=== PATIENT | female | born 1950 | race Caucasian/White ===

== ENCOUNTER 2017-07-21 20:58 | Emergency (ER) | payer MEDICARE, BC, OTHER ==
[2017-07-21] MEDS ORDERED: TYLENOL 325 MG PO ONE (21:20)
[2017-07-21] MEDS ORDERED: ATARAX 25 MG PO ONE (21:21)
[2017-07-21] MEDS ORDERED: ATARAX 25 MG ONE (21:28)
[2017-07-21] MEDS ORDERED: TYLENOL 325 MG ONE (21:28)
--- NOTE | 2017-07-21 21:29 | ERPHSYRPT ---
- History of Present Illness Time Seen by Provider: 07/21/17 21:01 Source: patient Patient Subjective Stated Complaint: pt has had a dull headache all day and tonight she went to her sons and he checked her blood pressure and said for her to come to the hospital because her blood pressure is high no fever no vomiting -she has not taken her night meds -no weakness Triage Nursing Assessment: pt is awake and alert and able to answer questions Physician History: CC: headache Hx: 67 y/o patient on eliquis. She has hx of HTN. She has frequent headache, but a little worse today. She noted high blood pressure at home and kids checked her and sent her to ER. No N/T/W. No chest, abd, or back pain. She has chronic shoulder pains. No fever or chills. No blurred vision. No fall or injury. She has not taken headache meds today and is due to take her evening medications. Timing/Duration: today Severity: moderate Allergies/Adverse Reactions: amoxicillin trihydrate [From Augmentin] Allergy (Verified 07/14/16 19:45) clindamycin Allergy (Verified 07/14/16 19:45) niacin [Niacin] Allergy (Verified 07/14/16 19:45) potassium clavula *RETIRED-01/15/13 [From Augmentin] Allergy (Verified 07/14/16 19:45) NOT ALLERGIC Home Medications: Calcium Carbonate/Vitamin D3 [Os-Charles 500+D Caplet] 1 each PO BID 02/26/13 [ History] Captopril 12.5 mg PO BID 02/26/13 [History] Carvedilol 12.5 mg [Coreg 12.5 mg] 12.5 mg PO BID 02/26/13 [History] Metformin HCl 500 mg [Glucophage 500 MG] 500 mg PO BID 02/26/13 [History] Omeprazole 20 MG [Prilosec 20 mg] 20 mg PO DAILY 02/26/13 [History] Rosuvastatin Calcium [Crestor] 20 mg PO DAILY 02/27/13 [History] Sitagliptin Phosphate 50 MG [Januvia 50 MG] 100 mg PO DAILY 02/27/13 [ History] Apixaban [Eliquis] 5 mg PO BID 04/20/15 [History] Liraglutide [Victoza 3-Brian] 1.2 mg SQ DAILY 04/20/15 [History] Gabapentin Enacarbil [Horizant] 600 mg PO TID 12/15/15 [History] Hydrocodone Bit/Acetaminophen [Hydrocodon-Acetaminophen 5-325] 1 each PO Q4- 6HPRN PRN 12/15/15 [History] Ondansetron [Zofran Odt] 4 mg PO Q8HPRN PRN 12/15/15 [History] Ferrous Sulfate [Feosol] 07/14/16 [History] Furosemide 5 mg PO 07/14/16 [History] Hydralazine HCl 10 mg PO TID 07/14/16 [History] Hx Tetanus, Diphtheria Vaccination/Date Given: Yes Hx Influenza Vaccination/Date Given: No Hx Pneumococcal Vaccination/Date Given: Yes - Review of Systems Constitutional: No Fever, No Chills Eyes: No Vision Changes Ears, Nose, & Throat: No Symptoms Respiratory: No Cough, No Dyspnea Cardiac: No Chest Pain Abdominal/Gastrointestinal: No Abdominal Pain, No Nausea, No Vomiting, No Diarrhea Musculoskeletal: Neck Pain (with chronic shoulder pains), No Back Pain, No Fall , No Injury Skin: No Rash Neurological: Headache, No Focal Weakness, No Parasthesia All Other Systems: Reviewed and Negative - Past Medical History Pertinent Past Medical History: Yes Neurological History: Peripheral Neuropathy ENT History: Other Cardiac History: Arrhythmia, Hypertension Respiratory History: No Pertinent History Endocrine Medical History: Adrenal Insufficiency, Diabetes Type II Musculoskeletal History: Fractures, Osteoarthritis GI Medical History: No Pertinent History History: No Pertinent History Psycho-Social History: No Pertinent History Female Reproductive Disorders: No Pertinent History Other Medical History: R TKA - Past Surgical History Past Surgical History: Yes Neuro Surgical History: No Pertinent History Cardiac: No Pertinent History Respiratory: No Pertinent History Gastrointestinal: Appendectomy Genitourinary: No Pertinent History Musculoskeletal: Joint Replacement Female Surgical History: Hysterectomy, Tubal Ligation Other Surgical History: tonsillectomy,. RIGHT KNEE REPLACED - Social History Smoking Status: Current every day smoker How long have you smoked: 30 Exposure to second hand smoke: Yes Alcohol Use: None Drug Use: none Patient Lives Alone: No Significant Family History: no pertinent family hx - Female History Hx Last Menstrual Period: na Hx Now: No - Nursing Vital Signs Nursing Vital Signs: Initial Vital Signs Temperature 97.6 F 10/28/17 21:27 Pulse Rate 80 07/21/17 21:27 Respiratory Rate 18 07/21/17 21:27 Blood Pressure 173/97 07/21/17 21:27 O2 Sat by Pulse Oximetry 97 07/21/17 21:27 Pain Scale Pain Intensity 5 - Physical Exam General Appearance: alert, other (pleasant lady) Eye Exam: PERRL/EOMI Ears, Nose, Throat Exam: normal ENT inspection, moist mucous membranes Neck Exam: normal inspection, non-tender, supple Respiratory Exam: normal breath sounds Cardiovascular Exam: irregular Gastrointestinal/Abdomen Exam: soft, No tenderness, No distention Back Exam: normal inspection, normal range of motion Extremity Exam: other (brace on left leg, recent femur fx right) Neurologic Exam: alert, oriented x 3, cooperative, induction machine setter II-XII nml as tested, sensation nml, No motor deficits Skin Exam: warm, dry, No rash - Course Nursing assessment & vital signs reviewed: Yes EKG Interpreted by Me: RATE (68), A-fib (old), NORMAL INTERVALS (QTc 417), NORMAL QRS, NORMAL ST-T, Other (poor R wave progression) - CT Exams head CT Interpretation: Negative, Tele-radiologist Report Ordered Tests: Active Orders 24 hr Category Date Time Status HEAD WITHOUT CONTRAST [CT] Stat Exams 07/21/17 21:20 Taken Glucose,Critical Care Urgent Lab 07/21/17 21:47 Completed VENOUS BLOOD GAS Urgent Lab 07/21/17 21:20 Completed Medication Summary Discontinued Medications Generic Name Dose Route Start Last Admin Trade Name Marta PRN Reason Stop Dose Admin Acetaminophen 650 mg 07/21/17 21:20 07/21/17 21:31 Tylenol 325 Mg PO 07/21/17 21:21 650 mg STAT ONE Administration Acetaminophen Confirm 07/21/17 21:28 Tylenol 325 Mg Administered 07/21/17 21:29 Dose 650 mg .ROUTE .STK-MED ONE Hydroxyzine HCl 25 mg 07/21/17 21:21 07/21/17 21:31 Atarax 25 Mg PO 07/21/17 21:22 25 mg STAT ONE Administration Hydroxyzine HCl Confirm 07/21/17 21:28 Atarax 25 Mg Administered 07/21/17 21:29 Dose 25 mg .ROUTE .STK-MED ONE Lab/Rad Data: Laboratory Results 07/21/17 07/21/17 Range/Units 21:47 21:20 VBG pH 7.42 (7.32-7.42) VBG pCO2 at Pat Temp 42 (42-55) mm/Hg VBG pO2 at Pat Temp 46 H (25-40) mm/Hg VBG HCO3 27.2 (22-28) meq/L VBG O2 Sat (Shilpa) 89.6 L (95-100) VBG Base Excess 2.3 H (-2.0-2.0) VBG Hemoglobin 16.4 VBG Carboxyhemoglobin 8.7 H* (0.0-6.9) % T HGB POC Potassium 3.9 (3.5-5.1) Glucose 124 H (70-110) - Progress Progress Note: 07/21/17 22:31 BP still somewhat elevated but she has yet to take her normal evening BP meds at home. Sugar, VBG reassuring. She smokes. All electric household with no CO or gas exposure. Chronic afib. Headache better. Will release with family. She plans to follow up with Dr Rainey and Dragan next week. Counseled pt/family regarding: lab results, diagnosis, need for follow-up, rad results, smoking cessation - Departure Time of Disposition: 22:32 Departure Disposition: Home Clinical Impression: Headache, Hypertension Condition: Stable Critical Care Time: No Referrals: CAMERON RAINEY [Primary Care Provider] - Instructions: Headache, High Blood Pressure Additional Instructions: HEADACHE 1. After discharge from the emergency department, you should rest at home in a cool, dark, quiet place for 12-24 hours. 2. If any of the following signs or symptoms are noticed, you should be re- evaluated right away: A. Visual changes B. Stiff Neck C. Change in quality or location of pain D. Fever E. Recurrent vomiting 3. If pain medications were prescribed or given, they may cause drowsiness. No driving tonite and stay with family. Take your normal medications tonite. Return for problems or concerns. Follow up next week with Dr Sherri Rainey and Dr Archibald.
[2017-07-21 21:56] LABS: VBG BASE EXCESS 2.3 (-2.0-2.0); VBG HCO3- 27.2 meq/L (22-28); VBG HEMOGLOBIN 16.4; VBG O2 SATURATION 89.6 (95-100); VBG POTASSIUM 3.9 (3.5-5.1); VBG pH 7.42 (7.32-7.42)
[2017-07-21 21:57] LABS: VBG CARBOXYHEMOGLOBIN 8.7 % T HGB (0.0-6.9)
[2017-07-21 22:33] VITALS: BP 170/90; PULSE 68; O2SAT 98
--- NOTE | 2017-07-22 09:38 | XRAY ---
Indication: Headache. Patient on blood thinners. Hypertension. Multiple contiguous axial images obtained through the head without contrast. Comparison: None Ventriculosulcal pattern appears symmetric. Right caudate head remote lacunar infarct. No acute intracranial hemorrhage, abnormal extra-axial fluid collection, or mass effect. Fourth ventricle is midline without hydrocephalus. Alcaraz-white matter differentiation preserved. Bony calvarium intact. Visualized paranasal sinuses and mastoid air cells are clear. Impression: Remote right caudate head lacunar infarct. No acute intracranial abnormalities. Comment: Preliminary interpretation was made by [facility]. No discrepancy. CTDI 69.79
== END 2017-07-21 22:39 | disposition home or self-care (01) ==
LOC: ED 20:58
DX: R51 Headache (principal); I10 Essential (primary) hypertension; E11.9 Type 2 diabetes mellitus without complications; Z79.01 Long term (current) use of anticoagulants; Z79.899 Other long term (current) drug therapy; Z79.891 Long term (current) use of opiate analgesic
CPT/HCPCS: 70450; 82805; 82947; 99284; A9270-GY

== ENCOUNTER 2018-02-06 19:38 | Emergency (ER) | payer MEDICARE, BC, OTHER ==
--- NOTE | 2018-02-06 20:15 | ERPHSYRPT ---
- History of Present Illness Time Seen by Provider: 02/06/18 20:00 Source: patient Exam Limitations: no limitations Patient Subjective Stated Complaint: UTI. pt had 5 teeth pulled today and had been having burning and frequency for about 4 days Triage Nursing Assessment: pt is alert and oriented. pt came in via wheelchair. pt is not experiencing any abd. pain. pt has been experiencing burning and frequency. pt stated today that she had blood in her urine. Physician History: 67 y/o female with history of a fib, HTN and DM comes to the ER with complaints of dysuria, hematuria and polyuria for the last 3 days. Pt had a tooth pulled today and has been off eliquis today. Pt arrives in afib with a heart rate fluctuating between 90-115. Pt denies any fever, chills, chest pain, shortness of breath, palpitations, dizziness, abdominal pain, back pain, nausea or vomiting. Of note, patient was on terminal operator antibiotics 2 years ago for frequent UTIs Timing/Duration: day(s) Associated Symptoms: No nausea, No vomiting, No abdominal pain Allergies/Adverse Reactions: amoxicillin trihydrate [From Augmentin] Allergy (Verified 07/14/16 19:45) clindamycin Allergy (Verified 07/14/16 19:45) niacin [Niacin] Allergy (Verified 07/14/16 19:45) potassium clavula *RETIRED-01/15/13 [From Augmentin] Allergy (Verified 07/14/16 19:45) NOT ALLERGIC Home Medications: Calcium Carbonate/Vitamin D3 [Os-Charles 500+D Caplet] 1 each PO BID 02/26/13 [ History] Captopril 12.5 mg PO BID 02/26/13 [History] Carvedilol 12.5 mg [Coreg 12.5 mg] 12.5 mg PO BID 02/26/13 [History] Metformin HCl 500 mg [Glucophage 500 MG] 500 mg PO BID 02/26/13 [History] Omeprazole 20 MG [Prilosec 20 mg] 20 mg PO DAILY 02/26/13 [History] Rosuvastatin Calcium [Crestor] 20 mg PO DAILY 02/27/13 [History] Sitagliptin Phosphate 50 MG [Januvia 50 MG] 100 mg PO DAILY 02/27/13 [ History] Apixaban [Eliquis] 5 mg PO BID 04/20/15 [History] Liraglutide [Victoza 3-Brian] 1.2 mg SQ DAILY 04/20/15 [History] Gabapentin Enacarbil [Horizant] 600 mg PO TID 12/15/15 [History] Hydrocodone Bit/Acetaminophen [Hydrocodon-Acetaminophen 5-325] 1 each PO Q4- 6HPRN PRN 12/15/15 [History] Ondansetron [Zofran Odt] 4 mg PO Q8HPRN PRN 12/15/15 [History] Ferrous Sulfate [Feosol] 07/14/16 [History] Furosemide 5 mg PO 07/14/16 [History] Hydralazine HCl 10 mg PO TID 07/14/16 [History] Hx Tetanus, Diphtheria Vaccination/Date Given: Yes Hx Influenza Vaccination/Date Given: Yes Hx Pneumococcal Vaccination/Date Given: No Immunizations Up to Date: Yes - Review of Systems Constitutional: No Fever, No Chills Eyes: No Symptoms Ears, Nose, & Throat: No Symptoms Respiratory: No Cough, No Dyspnea Cardiac: No Chest Pain, No Edema, No Syncope Abdominal/Gastrointestinal: No Abdominal Pain, No Nausea, No Vomiting, No Diarrhea Genitourinary Symptoms: Dysuria, Frequency, Hematuria Musculoskeletal: No Back Pain, No Neck Pain Skin: No Rash Neurological: No Dizziness, No Focal Weakness, No Sensory Changes Psychological: No Symptoms Endocrine: No Symptoms All Other Systems: Reviewed and Negative - Past Medical History Pertinent Past Medical History: Yes Neurological History: Peripheral Neuropathy ENT History: Other Cardiac History: Arrhythmia, Hypertension Respiratory History: No Pertinent History Endocrine Medical History: Diabetes Type II Musculoskeletal History: Fractures, Osteoarthritis GI Medical History: No Pertinent History History: No Pertinent History Psycho-Social History: No Pertinent History Female Reproductive Disorders: No Pertinent History Other Medical History: R TKA - Past Surgical History Past Surgical History: Yes Neuro Surgical History: No Pertinent History Cardiac: No Pertinent History Respiratory: No Pertinent History Gastrointestinal: Appendectomy Genitourinary: No Pertinent History Musculoskeletal: Joint Replacement Female Surgical History: Hysterectomy, Tubal Ligation Other Surgical History: tonsillectomy,. RIGHT KNEE REPLACED, right femur ike - Social History Smoking Status: Current every day smoker How long have you smoked: 30 Exposure to second hand smoke: Yes Alcohol Use: None Drug Use: none Patient Lives Alone: No Significant Family History: no pertinent family hx - Female History Hx Now: No - Nursing Vital Signs Nursing Vital Signs: Initial Vital Signs Temperature 99.1 F 02/06/18 19:39 Pulse Rate 96 H 02/06/18 19:39 Respiratory Rate 16 02/06/18 19:39 Blood Pressure 119/77 02/06/18 19:39 O2 Sat by Pulse Oximetry 95 02/06/18 19:39 Pain Scale Pain Intensity 0 - Physical Exam General Appearance: no apparent distress, alert Eye Exam: PERRL/EOMI, eyes nml inspection Ears, Nose, Throat Exam: normal ENT inspection, TMs normal, pharynx normal, moist mucous membranes Neck Exam: normal inspection, non-tender, supple, full range of motion Respiratory Exam: normal breath sounds, lungs clear, No respiratory distress Cardiovascular Exam: normal peripheral pulses, tachycardia, irregular Gastrointestinal/Abdomen Exam: soft, normal bowel sounds, No tenderness, No mass Back Exam: normal inspection, normal range of motion, No CVA tenderness, No vertebral tenderness Extremity Exam: normal inspection, normal range of motion, pelvis stable Neurologic Exam: alert, oriented x 3, cooperative, normal mood/affect, nml cerebellar function, nml station & gait, sensation nml, No motor deficits Skin Exam: normal color, warm, dry, No rash Lymphatic Exam: No adenopathy SpO2: 95 Oxygen Delivery: Room Air - Course Nursing assessment & vital signs reviewed: Yes EKG Interpreted by Me: A-fib, Other (heart rate 110) Ordered Tests: Active Orders 24 hr Category Date Time Status Supply Tech STAT Care 02/06/18 20:09 Active Clean Catch Urine Specimen STAT Care 02/06/18 20:02 Active EKG-ER Only STAT Care 02/06/18 20:08 Active CBC W DIFF Stat Lab 02/06/18 20:30 Completed CMP Stat Lab 02/06/18 20:30 Completed CULTURE,URINE Stat Lab 02/06/18 20:15 Received PROTIME WITH INR Stat Lab 02/06/18 20:30 Completed PTT Stat Lab 02/06/18 20:30 Completed TROPONIN Q3H Lab 02/06/18 20:30 Completed TROPONIN Q3H Lab 02/06/18 23:15 Ordered TROPONIN Q3H Lab 02/07/18 02:15 Ordered TROPONIN Q3H Lab 02/07/18 05:15 Ordered TROPONIN Q3H Lab 02/07/18 08:15 Ordered UA W/ MICROSCOPIC Stat Lab 02/06/18 20:15 Completed Medication Summary Discontinued Medications Generic Name Dose Route Start Last Admin Trade Name Marta PRN Reason Stop Dose Admin Trimethoprim/Sulfamethoxazole 1 tab 02/06/18 21:33 Bactrim Ds Tablet PO 02/06/18 21:34 STAT STA Lab/Rad Data: Laboratory Result Diagrams 02/06/18 20:30 02/06/18 20:30 Laboratory Results 02/06/18 02/06/18 02/06/18 Range/Units 20:30 20:30 20:30 WBC (4.0-10.5) K/mm3 RBC (4.1-5.4) M/mm3 Hgb (12.0-16.0) gm/dl Hct (35-47) % MCV (78-100) fl MCH (26-32) pg MCHC (32-36) g/dl RDW (11.5-14.0) % Plt Count (150-450) K/mm3 MPV (6-9.5) fl Gran % (36.0-66.0) % Eos # (Auto) (0-0.5) Absolute Lymphs (auto) (1.0-4.6) Absolute Monos (auto) (0.0-1.3) Lymphocytes % (24.0-44.0) % Monocytes % (0.0-12.0) % Eosinophils % (0.00-5.0) % Basophils % (0.0-0.4) % Absolute Granulocytes (1.4-6.9) Basophils # (0-0.4) PT 14.5 H (9.95-12.35) SECONDS INR 1.24 (0.8-3.0) APTT 38.2 H (25.3-37.0) SECONDS Sodium 139 (137-145) mmol/L Potassium 4.0 (3.5-5.1) mmol/L Chloride 102 (98-107) mmol/L Carbon Dioxide 28 (22-30) mmol/L Anion Gap 12.5 (5-15) MEQ/L BUN 19 H (7-17) mg/dL Creatinine 1.45 H (0.52-1.04) mg/dL Estimated GFR 38.4 ML/MIN Glucose 106 (74-106) mg/dL Calcium 9.2 (8.4-10.2) mg/dL Total Bilirubin 1.50 H (0.2-1.3) mg/dL AST 45 H (14-36) U/L ALT 33 (0-35) U/L Alkaline Phosphatase 106 (38-126) U/L Troponin I < 0.012 (0.000-0.034) ng/mL Serum Total Protein 6.7 (6.3-8.2) g/dL Albumin 3.6 (3.5-5.0) g/dL Ur Collection Type Urine Color (YELLOW) Urine Appearance (CLEAR) Urine pH (5-6) Ur Specific Justice (1.005-1.025) Urine Protein (Negative) Urine Ketones (NEGATIVE) Urine Blood (0-5) De/ul Urine Nitrite (NEGATIVE) Urine Bilirubin (NEGATIVE) Urine Urobilinogen (0-1) mg/dL Ur Leukocyte Esterase (NEGATIVE) Urine Microscopic RBC (0-2) /HPF Urine Microscopic WBC (0-5) /HPF Ur Epithelial Cells (FEW) /HPF Urine Bacteria (NEGATIVE) /HPF Urine Culture Reflexed (NO) Urine Glucose (NEGATIVE) mg/dL Specimen Received 02/06/18 02/06/18 Range/Units 20:30 20:15 WBC 9.8 (4.0-10.5) K/mm3 RBC 4.99 (4.1-5.4) M/mm3 Hgb 16.2 H (12.0-16.0) gm/dl Hct 47.3 H (35-47) % MCV 94.8 (78-100) fl MCH 32.4 H (26-32) pg MCHC 34.2 (32-36) g/dl RDW 14.5 H (11.5-14.0) % Plt Count 134 L (150-450) K/mm3 MPV 12.3 H (6-9.5) fl Gran % 70.1 H (36.0-66.0) % Eos # (Auto) 0.06 (0-0.5) Absolute Lymphs (auto) 1.28 (1.0-4.6) Absolute Monos (auto) 1.56 H (0.0-1.3) Lymphocytes % 13.1 L (24.0-44.0) % Monocytes % 16.0 H (0.0-12.0) % Eosinophils % 0.6 (0.00-5.0) % Basophils % 0.2 (0.0-0.4) % Absolute Granulocytes 6.84 (1.4-6.9) Basophils # 0.02 (0-0.4) PT (9.95-12.35) SECONDS INR (0.8-3.0) APTT (25.3-37.0) SECONDS Sodium (137-145) mmol/L Potassium (3.5-5.1) mmol/L Chloride (98-107) mmol/L Carbon Dioxide (22-30) mmol/L Anion Gap (5-15) MEQ/L BUN (7-17) mg/dL Creatinine (0.52-1.04) mg/dL Estimated GFR ML/MIN Glucose (74-106) mg/dL Calcium (8.4-10.2) mg/dL Total Bilirubin (0.2-1.3) mg/dL AST (14-36) U/L ALT (0-35) U/L Alkaline Phosphatase (38-126) U/L Troponin I (0.000-0.034) ng/mL Serum Total Protein (6.3-8.2) g/dL Albumin (3.5-5.0) g/dL Ur Collection Type CLEAN CATCH Urine Color LAURE (YELLOW) Urine Appearance CLOUDY (CLEAR) Urine pH 6.0 (5-6) Ur Specific Justice 1.010 (1.005-1.025) Urine Protein 100 (Negative) Urine Ketones SMALL (NEGATIVE) Urine Blood 250 (0-5) De/ul Urine Nitrite NEGATIVE (NEGATIVE) Urine Bilirubin NEGATIVE (NEGATIVE) Urine Urobilinogen 1 (0-1) mg/dL Ur Leukocyte Esterase 2+ (NEGATIVE) Urine Microscopic RBC 5-10 (0-2) /HPF Urine Microscopic WBC 50-100 (0-5) /HPF Ur Epithelial Cells FEW (FEW) /HPF Urine Bacteria FEW (NEGATIVE) /HPF Urine Culture Reflexed YES (NO) Urine Glucose NEGATIVE (NEGATIVE) mg/dL Specimen Received 02/06/18 2030 - Progress Progress: improved Progress Note: 02/06/18 21:38 Pt has a heart in the high 90's and has no symptoms. The rest of the labs are unremarkable. The patient has a UTI and will be treated with macrobid for 10 days. - Departure Time of Disposition: 21:38 Departure Disposition: Home Clinical Impression: UTI (urinary tract infection) Qualifiers: Urinary tract infection type: acute cystitis Hematuria presence: with hematuria Qualified Code(s): N30.01 - Acute cystitis with hematuria Condition: Stable Critical Care Time: No Referrals: CAMERON RAINEY [Primary Care Provider] - Instructions: Urinary Tract Infection, Adult (DC) Additional Instructions: Follow up with your primary care doctor in the next few days. Finish the antibiotics until completion. Prescriptions: Nitrofurantoin Macro 100 mg [Macrobid 100MG Capsule] 100 mg PO BID #19 capsule
[2018-02-06 20:38] LABS: BASOPHIL % 0.2 % (0.0-0.4); Basophil (Absolute #) 0.02 (0-0.4); Eosinophil % 0.6 % (0.00-5.0); Eosinophil (Absolute #) 0.06 (0-0.5); Granulocyte Absolute (ANC) 6.84 (1.4-6.9); Granulocytes % 70.1 % (36.0-66.0); Hematocrit 47.3 % (35-47); Hemoglobin 16.2 gm/dl (12.0-16.0); Lymphocyte (Absolute #) 1.28 (1.0-4.6); Lymphocytes % 13.1 % (24.0-44.0); Mean Cell Volume 94.8 fl (78-100); Mean Corpuscular Hgb Concent. 34.2 g/dl (32-36); Mean Platelet Volume 12.3 fl (6-9.5); Monocyte (Absolute #) 1.56 (0.0-1.3); Platelet Count 134 K/mm3 (150-450); Red Blood Count 4.99 M/mm3 (4.1-5.4); Red Cell Distribution Width 14.5 % (11.5-14.0); White Blood Count 9.8 K/mm3 (4.0-10.5)
[2018-02-06 20:40] LABS: Mean Corpuscular Hemoglobin 32.4 pg (26-32)
[2018-02-06 20:48] LABS: INR 1.24 (0.8-3.0)
[2018-02-06 20:51] LABS: PTT 38.2 SECONDS (25.3-37.0)
[2018-02-06 20:52] LABS: ALBUMIN 3.6 g/dL (3.5-5.0); ANION GAP 12.5 MEQ/L (5-15); BILIRUBIN,TOTAL 1.5 mg/dL (0.2-1.3); Calcium 9.2 mg/dL (8.4-10.2); Creatinine 1 1.45 mg/dL (0.52-1.04); Total Protein 6.7 g/dL (6.3-8.2)
[2018-02-06 21:31] LABS: Appearance CLOUDY (CLEAR)
[2018-02-06 21:32] LABS: Bacteria FEW /HPF (NEGATIVE); Bilirubin NEGATIVE (NEGATIVE); Blood 250 Ery/ul (0-5); Epithelial Cells FEW /HPF (FEW); Glucose NEGATIVE (NEGATIVE); Ketones SMALL (NEGATIVE); Leukocyte Esterase 2+ (NEGATIVE); Nitrite NEGATIVE (NEGATIVE); Protein,Urine Dip 100 (Negative); Urobilinogen 1 mg/dL (0-1); WBC 50-100 /HPF (0-5)
[2018-02-06] MEDS ORDERED: BACTRIM DS TABLET PO STA (21:33)
[2018-02-06] MEDS ORDERED: Macrobid 100MG Capsule ONE (21:40)
[2018-02-06] MEDS: Macrobid 100MG Capsule PO ONE (21:42)
[2018-02-06 22:01] LABS: Slide Review 1 YES
[2018-02-06 22:13] VITALS: BP 110/69; PULSE 101; O2SAT 95
== END 2018-02-06 22:15 | disposition home or self-care (01) ==
LOC: ED 19:38
DX: N30.01 Acute cystitis with hematuria (principal); I48.91 Unspecified atrial fibrillation; I10 Essential (primary) hypertension; E11.9 Type 2 diabetes mellitus without complications; Z79.01 Long term (current) use of anticoagulants; Z79.899 Other long term (current) drug therapy; Z79.84 Long term (current) use of oral hypoglycemic drugs
CPT/HCPCS: 36000; 36415; 80053; 81000; 84484; 85025; 85610; 85730; 87086; 93005; 93041; 99284; A9270-GY

== ENCOUNTER 2023-10-12 14:31 | Emergency (ER) | payer MEDICARE, BC, OTHER ==
--- NOTE | 2023-10-12 15:18 | ERPHSYRPT ---
- History of Present Illness Time Seen by Provider: 10/12/23 15:17 Source: patient Exam Limitations: no limitations Physician History: This is an obese 73-year-old white female patient of nurse practitioner Zion who stood up 2 days prior to today's examination in the emergency department and felt and heard a "pop" on the dorsal aspect of her left foot. Since that time she has had intermittent, sharp shooting pains down distally to her toes. Patient rates her pain today as a 2 out of 10. Patient has a history of peripheral neuropathy, arrhythmias, morbid obesity, hyperlipidemia, hypertension, gastroesophageal flux disease on Eliquis. She is a daily smoker of cigarettes. Occurred: days ago (2) Severity of Pain-Max: mild Severity of Pain-Current: mild Lower Extremities Pain: foot: left (Dorsal aspect) Modifying Factors: Improves With: nothing Associated Symptoms: none Allergies/Adverse Reactions: amoxicillin trihydrate [From Augmentin] Allergy (Verified 10/12/23 15:14) clindamycin Allergy (Verified 10/12/23 15:14) niacin [Niacin] Allergy (Verified 10/12/23 15:14) potassium clavula *RETIRED-01/15/13 [From Augmentin] Allergy (Verified 10/12/23 15:14) NOT ALLERGIC Home Medications: Calcium Carbonate/Vitamin D3 [Os-Charles 500+D Caplet] 1 each PO BID 02/26/13 [History] Captopril 12.5 mg PO BID 02/26/13 [History] Carvedilol 12.5 mg [Coreg 12.5 mg] 12.5 mg PO BID 02/26/13 [History] Metformin HCl 500 mg [Glucophage 500 MG] 500 mg PO BID 02/26/13 [History] Omeprazole 20 MG [Prilosec 20 mg] 20 mg PO DAILY 02/26/13 [History] Rosuvastatin Calcium [Crestor] 20 mg PO DAILY 02/27/13 [History] Sitagliptin Phosphate 50 MG [Januvia 50 MG] 100 mg PO DAILY 02/27/13 [History] Apixaban [Eliquis] 5 mg PO BID 04/20/15 [History] Liraglutide [Victoza 3-Brian] 1.2 mg SQ DAILY 04/20/15 [History] Gabapentin Enacarbil [Horizant] 600 mg PO TID 12/15/15 [History] Ferrous Sulfate [Feosol] 07/14/16 [History] Furosemide 5 mg PO 07/14/16 [History] Hydralazine HCl 10 mg PO TID 07/14/16 [History] Hx Tetanus, Diphtheria Vaccination/Date Given: Yes Hx Influenza Vaccination/Date Given: Yes Hx Pneumococcal Vaccination/Date Given: No Travel Risk - International Travel Have you traveled outside of the country in past 3 weeks: No - Coronavirus Screening Are you exhibiting any of the following symptoms?: No Close contact with a COVID-19 positive Pt in past 14-21 Days: No - Review of Systems Constitutional: No Symptoms Eyes: No Symptoms Ears, Nose, & Throat: No Symptoms Respiratory: No Symptoms Cardiac: No Symptoms Abdominal/Gastrointestinal: No Symptoms Genitourinary Symptoms: No Symptoms Musculoskeletal: Injury (Dorsal aspect left foot) Skin: No Symptoms Neurological: No Symptoms Psychological: No Symptoms Endocrine: No Symptoms Hematologic/Lymphatic: No Symptoms - Past Medical History Pertinent Past Medical History: Yes Neurological History: Peripheral Neuropathy ENT History: Other Cardiac History: Arrhythmia, Hypertension Respiratory History: No Pertinent History Endocrine Medical History: Diabetes Type II Musculoskeletal History: Fractures, Osteoarthritis GI Medical History: No Pertinent History History: No Pertinent History Psycho-Social History: No Pertinent History Female Reproductive Disorders: No Pertinent History Other Medical History: R TKA - Past Surgical History Past Surgical History: Yes Neuro Surgical History: No Pertinent History Cardiac: No Pertinent History Respiratory: No Pertinent History Gastrointestinal: Appendectomy Genitourinary: No Pertinent History Musculoskeletal: Joint Replacement Female Surgical History: Hysterectomy, Tubal Ligation Other Surgical History: tonsillectomy,. RIGHT KNEE REPLACED, right femur ike - Social History Smoking Status: Current every day smoker How long have you smoked: 30 Exposure to second hand smoke: Yes Alcohol Use: None Drug Use: none Patient Lives Alone: No Significant Family History: no pertinent family hx - Nursing Vital Signs Nursing Vital Signs: Initial Vital Signs Temperature 97.7 F 10/12/23 15:10 Pulse Rate 53 L 10/12/23 15:10 Respiratory Rate 18 10/12/23 15:10 Blood Pressure 131/56 10/12/23 15:10 O2 Sat by Pulse Oximetry 98 10/12/23 15:10 Pain Scale Pain Intensity 2 - Physical Exam General Appearance: no apparent distress, alert, anxiety, obese Eyes, Ears, Nose, Throat Exam: normal ENT inspection, moist mucous membranes Neck Exam: normal inspection, non-tender, supple, full range of motion Cardiovascular/Respiratory Exam: chest non-tender, no respiratory distress Gastrointestinal/Abdominal Exam: non-tender Back Exam: normal inspection, normal range of motion, No CVA tenderness, No vertebral tenderness Hips Exam: bilateral: non-tender, normal inspection, normal range of motion, no evidence of injury Legs Exam: bilateral leg: non-tender, normal inspection, normal range of motion, no evidence of injury Knees Exam: bilateral knee: non-tender, normal inspection, normal range of motion, no evidence of injury Ankle Exam: bilateral ankle: non-tender, normal inspection, normal range of motion, no evidence of injury Foot Exam: right foot: non-tender, left foot: bone tenderness (Dorsal aspect left foot), soft tissue tenderness (Dorsal aspect left foot), bilateral foot: normal inspection, normal range of motion, no evidence of injury Neuro/Tendon Exam: normal sensation, normal motor functions, normal tendon functions, responds to pain, no evidence tendon injury Mental Status Exam: alert, oriented x 3, cooperative Skin Exam: normal color, warm, dry SpO2 Interpretation: normal O2 Delivery: Room Air - Course Nursing assessment & vital signs reviewed: Yes Ordered Tests: Active Orders 24 hr Category Date Time Status FOOT (MINIMUM 3 VIEWS) Stat Exams 10/12/23 15:15 Completed - Progress Progress: unchanged Progress Note: 10/12/23 16:25 This patient's medical issue is 1 of low complexity. Level complex in the workup performed is based on review of the patient's past medical history, review the patient's medication list, review the patient drug allergy list, history present illness and physical exam findings. Workup in this patient in cludes left foot x-ray. The left foot x-ray was interpreted by the radiologist and I reviewed the impression. Left foot x-ray shows degenerative changes. There is no acute fractures or dislocations. There is small heel spurs. There is faint calcification of the Achilles tendon. 10/12/23 16:25 The patient's pain intensity level is 2 out of 10. She does not require any narcotic medication. She will use Tylenol, ibuprofen if there are no contraindications, and ice bath/ice pack. Counseled pt/family regarding: diagnosis, need for follow-up, rad results Medical Desision Making - Independent Historian Additional History obtained from: Family - Diagnostic Testing Diagnostic test were ordered, analyzed, and reviewed by me: Yes Radiological Interpretation: Reviewed by me, Teleradiologist Report - Risk of complications Minimal Risk: Minimal risk of morbidity - Departure Departure Disposition: Home Clinical Impression: Left foot pain Condition: Stable Critical Care Time: No Referrals: GUCCI VALENTIN NP [Primary Care Provider] - Follow up/PCP as directed Additional Instructions: Drink plenty of fluids. Use Tylenol and ibuprofen (if there are no contraindications) for pain control. Ice pack or ice bath 3 times a day for the next 48 hours. Follow-up with Dr. Cheng (podiatry) or [facility] orthopedic clinic Sunday through Sunday 8 AM to 10 AM. This is a walk-in clinic and you do not need to have an appointment. Follow-up with 1 of these 2 facilities if the pain persist beyond 72 hours.
[2023-10-12 15:45] VITALS: TEMP 97.7
--- NOTE | 2023-10-12 15:47 | XRAY ---
Indication: Pain following injury. Comparison: None 3 nonweightbearing views left foot demonstrates osteopenia, mild midfoot degenerative changes, small heel spurs, and small cuboid accessory ossicle. Faint calcifications Achilles tendon sequela old injury/inflammation. No other bony, articular, or soft tissue abnormalities.
[2023-10-12 16:10] VITALS: BP 107/45; PULSE 52; RESP 16; O2SAT 97
== END 2023-10-12 17:15 | disposition home or self-care (01) ==
LOC: ED 14:31
DX: M79.672 Pain in left foot (principal); I10 Essential (primary) hypertension; E11.42 Type 2 diabetes mellitus with diabetic polyneuropathy; E78.5 Hyperlipidemia, unspecified; Z79.84 Long term (current) use of oral hypoglycemic drugs; Z79.01 Long term (current) use of anticoagulants; Z79.85 Long-term (current) use of injectable non-insulin antidiabetic drugs; Z79.899 Other long term (current) drug therapy; Z72.0 Tobacco use
CPT/HCPCS: 73630; 99282

== ENCOUNTER 2025-08-12 14:11 | Observation (INO) | payer MEDICARE, BC ==
--- NOTE | 2025-08-12 14:17 | ERPHSYRPT ---
- History of Present Illness Source: patient, family, EMS, old records Exam Limitations: no limitations Timing/Duration: today Severity: mild Modifying Factors: Improves With: nothing Associated Symptoms: loss of appetite (Chronically) Hx Tetanus, Diphtheria Vaccination/Date Given: Yes Hx Influenza Vaccination/Date Given: Yes Hx Pneumococcal Vaccination/Date Given: No <AVIVA SIERRA - Last Filed: 08/12/25 19:10> <MACIELMELLO - Last Filed: 08/12/25 22:12> - History of Present Illness Time Seen by Provider: 08/12/25 14:17 Physician History: This is a 75-year-old overweight white female patient who arrives by the associate software developer service because of low blood sugar in the 50s at home with associated slurred speech. Patient's primary care provider is nurse edi Donovan. Upon arrival to the emergency department, after the patient received an amp of D50, the patient is completely awake alert and oriented with a nonfocal neurologic exam. She states that she has no chest pain and she is not short of breath. She states that she was aware what was happening and was surprised that her blood sugar was 50. Typically it is lower. Patient states that her primary prescribing providers have been adjusting different medications. On arrival to the emergency department her blood sugar is now 70. Patient has a history of hypertension, chronic renal disease not on dialysis (Dr. Bartholomew). Patient has a history of hyperlipidemia, gastroesophageal reflux disease and is taking Eliquis. She did not have any head injury. (AVIVA SIERRA) Allergies/Adverse Reactions: amoxicillin trihydrate [From Augmentin] Allergy (Verified 10/12/23 15:14) clindamycin Allergy (Verified 10/12/23 15:14) niacin [Niacin] Allergy (Verified 10/12/23 15:14) potassium clavula *RETIRED-01/15/13 [From Augmentin] Allergy (Verified 10/12/23 15:14) NOT ALLERGIC Home Medications: Carvedilol 12.5 mg [Coreg 12.5 mg] 25 mg PO BID 02/26/13 [History] Omeprazole 20 MG [Prilosec 20 mg] 20 mg PO DAILY 02/26/13 [History] Rosuvastatin Calcium [Crestor] 20 mg PO DAILY 02/27/13 [History] Sitagliptin Phosphate 50 MG [Januvia 50 MG] 100 mg PO DAILY 02/27/13 [History] Apixaban [Eliquis] 5 mg PO BID 04/20/15 [History] Gabapentin Enacarbil [Horizant] 600 mg PO TID 12/15/15 [History] Hydralazine HCl 25 mg PO BID 07/14/16 [History] Brimonidine Tartrate/Pf [Lumify 0.025% Eye Drop] 1 each OP HS 08/12/25 [History] Calcium Polycarbophil 625 mg [Fibercon 625 mg] 625 mg PO BID 08/12/25 [History] Cyanocobalamin 1000 Mcg/ml [Cyanocobalamin B-12 1000 MCG/ML] 1 ml PO UD 08/12/25 [History] Glipizide 5 mg [Glucotrol 5 MG] 5 mg PO BID 08/12/25 [History] [address]-3/Dha/Epa/Fish Oil [Fish Oil 1,000 mg Softgel] 1 each PO DAILY 08/12/25 [History] Pregabalin [Lyrica 100Mg] 100 mg PO DAILY 08/12/25 [History] Pregabalin [Lyrica 100Mg] 200 mg PO HS 08/12/25 [History] Travel Risk - International Travel Have you traveled outside of the country in past 3 weeks: No - Emerging Infectious Disease Are you exhibiting symptoms associated with any current EIDs: No <AVIVA SIERRA - Last Filed: 08/12/25 19:10> - Review of Systems Constitutional: Weakness (Chronic) Eyes: No Symptoms Ears, Nose, & Throat: No Symptoms Respiratory: No Symptoms Cardiac: No Symptoms Abdominal/Gastrointestinal: No Symptoms Genitourinary Symptoms: No Symptoms Musculoskeletal: No Symptoms Skin: No Symptoms Neurological: No Symptoms Psychological: No Symptoms Endocrine: No Symptoms Hematologic/Lymphatic: No Symptoms Immunological/Allergic: No Symptoms All Other Systems: Reviewed and Negative <AVIVA SIERRA - Last Filed: 08/12/25 19:10> - Past Medical History Pertinent Past Medical History: Yes Neurological History: Peripheral Neuropathy ENT History: Other Cardiac History: Arrhythmia, Hypertension Respiratory History: No Pertinent History Endocrine Medical History: Diabetes Type II Musculoskeletal History: Fractures, Osteoarthritis GI Medical History: No Pertinent History History: No Pertinent History Psycho-Social History: No Pertinent History Female Reproductive Disorders: No Pertinent History Other Medical History: R TKA - Past Surgical History Past Surgical History: Yes Neuro Surgical History: No Pertinent History Cardiac: No Pertinent History Respiratory: No Pertinent History Gastrointestinal: Appendectomy Genitourinary: No Pertinent History Musculoskeletal: Joint Replacement Female Surgical History: Hysterectomy, Tubal Ligation Other Surgical History: tonsillectomy,. RIGHT KNEE REPLACED, right femur ike Significant Family History: no pertinent family hx - Social History Smoking Status: Current every day smoker How long have you smoked: 30 Exposure to second hand smoke: Yes Alcohol Use: None Drug Use: none Patient Lives Alone: No <AVIVA SIERRA - Last Filed: 08/12/25 19:10> - Physical Exam General Appearance: no apparent distress, alert, obese Eye Exam: PERRL/EOMI, eyes nml inspection Ears, Nose, Throat Exam: normal ENT inspection, moist mucous membranes Neck Exam: normal inspection, non-tender, supple, full range of motion Respiratory Exam: normal breath sounds, lungs clear, No chest tenderness, No respiratory distress Cardiovascular Exam: regular rate/rhythm, normal heart sounds, normal peripheral pulses Gastrointestinal/Abdomen Exam: soft, normal bowel sounds, No tenderness Pelvic Exam: not done Rectal Exam: not done Back Exam: normal inspection, normal range of motion, No CVA tenderness, No vertebral tenderness Extremity Exam: normal inspection, normal range of motion, pelvis stable Neurologic Exam: alert, oriented x 3, cooperative, hair boiler II-XII nml as tested, sensation nml Skin Exam: normal color, warm, dry Lymphatic Exam: No adenopathy SpO2 Interpretation: normal O2 Delivery: Room Air <AVIVA SIRERA - Last Filed: 08/12/25 19:10> - Nursing Vital Signs Nursing Vital Signs: Initial Vital Signs Temperature 95.7 F 08/12/25 14:12 Pulse Rate 88 08/12/25 14:12 Respiratory Rate 22 08/12/25 14:12 Blood Pressure 155/88 08/12/25 14:12 O2 Sat by Pulse Oximetry 98 08/12/25 14:12 Pain Scale Pain Intensity 0 - Course Nursing assessment & vital signs reviewed: Yes EKG Interpreted by Me: RATE (73 ventricular paced complexes), Other (QTc 488. No acute ischemia on today's twelve-lead EKG) <AVIVA SIERRA - Last Filed: 08/12/25 19:10> - CT Exams Head CT Interpretation: Tele-radiologist Report (CTA head shows no comps. Very minimal calcification to the left parasellar ICA. Remaining CTA head normal) Soft Tissue Neck CT Interpretation: Tele-radiologist Report (CTA neck shows mild left ICA and minimal right ICA calcifications without critical stenosis or obstruction. Osteopenia and C4-C7 degenerative disc disease. Remaining CTA neck negative) <SANTO ABRAMS - Last Filed: 08/12/25 22:12> Ordered Tests: Active Orders 24 hr Category Date Time Status Machine Deburrer STAT Care 08/12/25 14:54 Active EKG-ER Only STAT Care 08/12/25 14:53 Completed IV Insertion STAT Care 08/12/25 14:[address] ANGIOGRAPHY NECK [CT] Stat Exams 08/12/25 19:16 Taken CTA HEAD W AND/OR WO CONTRAST [CT] Stat Exams 08/12/25 19:16 Taken HEAD WITHOUT CONTRAST [CT] Stat Exams 08/12/25 14:54 Completed CBC W DIFF Stat Lab 08/12/25 15:20 Completed CMP Stat Lab 08/12/25 15:20 Completed CULTURE,URINE Stat Lab 08/12/25 18:46 Received Lactic Acid Stat Lab 08/12/25 15:25 Completed MAGNESIUM Stat Lab 08/12/25 15:20 Completed POCT GLUCOSE Stat Lab 08/12/25 16:34 Completed UA W/RFX UR CULTURE Stat Lab 08/12/25 18:46 Completed Transfer Order Routine Transfer 08/12/25 Ordered Medication Summary Generic Name Dose Route Start Last Admin Trade Name Freq PRN Reason Stop Dose Admin Aspirin 325 mg 08/12/25 22:11 Aspirin 325 Mg Tablet.Ec PO 08/12/25 22:12 ONCE STA Sodium Chloride 500 mls @ 100 mls/hr 08/12/25 17:00 08/12/25 22:00 Sodium Chloride 0.9% 500 Ml IV 09/11/25 16:59 Infused .Q5H CINDY Infusion Discontinued Medications Generic Name Dose Route Start Last Admin Trade Name Freq PRN Reason Stop Dose Admin Dextrose Confirm 08/12/25 14:46 Dextrose 50%-Water 50 Ml Abboject Administered 08/12/25 14:47 Dose 50 ml IV .STK-MED ONE Dextrose 50 ml 08/12/25 14:51 08/12/25 14:52 Dextrose 50%-Water 50 Ml Abboject IV 08/12/25 14:52 50 ml STAT ONE Administration Sodium Chloride Confirm 08/12/25 16:55 Sodium Chloride 0.9% 1000 Ml Administered 08/12/25 16:56 Dose 1,000 mls @ ud .ROUTE .STK-MED ONE Levofloxacin/Dextrose 500 mg in 100 mls @ 100 mls/hr 08/12/25 20:22 08/12/25 21:26 Levofloxacin 500mg/100ml D5w IV 08/12/25 21:21 Infused STAT STA Infusion Levofloxacin/Dextrose Confirm 08/12/25 20:25 Levofloxacin 500mg/100ml D5w Administered 08/12/25 20:26 Dose 500 mg in 100 mls @ ud IV .STK-MED ONE Lab/Rad Data: Laboratory Result Diagrams 08/12/25 15:20 08/12/25 15:20 Laboratory Results 08/12/25 08/12/25 08/12/25 Range/Units 18:46 16:34 15:25 WBC (3.98-10.04) x10^3/uL RBC (3.93-5.22) x10^6/uL Hgb (11.2-15.7) g/dL Hct (34.1-44.9) % MCV (79.4-94.8) fL MCH (25.6-32.2) pg MCHC (32.2-35.5) g/dL RDW (11.7-14.4) % Plt Count (182-369) x10^3/uL MPV (9.4-12.3) fL Gran % (34.0-71.1) % Immature Gran % (Auto) (0.001-0.429) % Nucleat RBC Rel Count (0.00-0.2) % Eos # (Auto) (0.04-0.36) x10^3/uL Immature Gran # (Auto) (0.001-0.031) x10^3u/L Absolute Lymphs (auto) (1.18-3.74) x10^3/uL Absolute Monos (auto) (0.24-0.86) x10^3/uL Absolute Nucleated RBC (0.00-0.012) x10^3u/L Lymphocytes % (19.3-51.7) % Monocytes % (4.7-12.5) % Eosinophils % (0.7-5.8) % Basophils % (0.1-1.2) % Absolute Granulocytes (1.56-6.13) x10^3/uL Basophils # (0.01-0.08) x10^3/uL Sodium (135-145) mmol/L Potassium (3.5-5.1) mmol/L Chloride (98-107) mmol/L Carbon Dioxide (22-30) mmol/L Anion Gap (5-15) MEQ/L BUN (7-17) mg/dL Creatinine (0.52-1.04) mg/dL Estimated GFR ML/MIN Glucose (74-106) mg/dL POC Glucometer 169 H (74 to 106) mg/dL Lactic Acid 1.5 (0.4-2.0) Calcium (8.4-10.2) mg/dL Magnesium (1.6-2.3) mg/dL Total Bilirubin (0.2-1.3) mg/dL AST (14-36) U/L ALT (0-35) U/L Alkaline Phosphatase (38-126) U/L Serum Total Protein (6.3-8.2) g/dL Albumin (3.5-5.0) g/dL Urine Color Yellow (Yellow) Urine Appearance Cloudy A (Clear) Urine pH 5.5 (4.6-8.0) Ur Specific [place] 1.015 (1.005-1.030) Urine Protein 30 (Negative) Urine Glucose (UA) Negative (Negative) mg/dL Urine Ketones Negative (Negative) Urine Blood Negative (Negative) Urine Nitrite Positive A (Negative) Urine Bilirubin Negative (Negative) Urine Urobilinogen 1.0 A (0.2) mg/dL Ur Leukocyte Esterase Negative (Negative) U Hyaline Cast (Auto) 3-5 A (0-2) /LPF Urine Microscopic RBC 0-2 (0-5) /HPF Urine Microscopic WBC 0-2 (0-5) /HPF Ur Epithelial Cells Few (None Seen) /HPF Urine Bacteria Many A (None Seen) /HPF Urine Culture Reflexed ORDERED SEPARATELY (NO) Slides for Path Review 08/12/25 08/12/25 Range/Units 15:20 15:20 WBC 5.0 (3.98-10.04) x10^3/uL RBC 5.21 (3.93-5.22) x10^6/uL Hgb 15.9 H (11.2-15.7) g/dL Hct 48.4 H (34.1-44.9) % MCV 92.9 (79.4-94.8) fL MCH 30.5 (25.6-32.2) pg MCHC 32.9 (32.2-35.5) g/dL RDW 14.6 H (11.7-14.4) % Plt Count 88 L (182-369) x10^3/uL MPV 12.9 H (9.4-12.3) fL Gran % 66.6 (34.0-71.1) % Immature Gran % (Auto) 0.2 (0.001-0.429) % Nucleat RBC Rel Count 0.0 (0.00-0.2) % Eos # (Auto) 0.08 (0.04-0.36) x10^3/uL Immature Gran # (Auto) 0.01 (0.001-0.031) x10^3u/L Absolute Lymphs (auto) 1.24 (1.18-3.74) x10^3/uL Absolute Monos (auto) 0.30 (0.24-0.86) x10^3/uL Absolute Nucleated RBC 0.00 (0.00-0.012) x10^3u/L Lymphocytes % 25.0 (19.3-51.7) % Monocytes % 6.0 (4.7-12.5) % Eosinophils % 1.6 (0.7-5.8) % Basophils % 0.6 (0.1-1.2) % Absolute Granulocytes 3.30 (1.56-6.13) x10^3/uL Basophils # 0.03 (0.01-0.08) x10^3/uL Sodium 139 (135-145) mmol/L Potassium 3.6 (3.5-5.1) mmol/L Chloride 104 (98-107) mmol/L Carbon Dioxide 22 (22-30) mmol/L Anion Gap 17.1 H (5-15) MEQ/L BUN 22 H (7-17) mg/dL Creatinine 1.18 H (0.52-1.04) mg/dL Estimated GFR 48.5 ML/MIN Glucose 97 (74-106) mg/dL POC Glucometer (74 to 106) mg/dL Lactic Acid (0.4-2.0) Calcium 9.7 (8.4-10.2) mg/dL Magnesium 2.2 (1.6-2.3) mg/dL Total Bilirubin 1.70 H (0.2-1.3) mg/dL AST 46 H (14-36) U/L ALT 20 (0-35) U/L Alkaline Phosphatase 51 (38-126) U/L Serum Total Protein 7.7 (6.3-8.2) g/dL Albumin 4.6 (3.5-5.0) g/dL Urine Color (Yellow) Urine Appearance (Clear) Urine pH (4.6-8.0) Ur Specific [place] (1.005-1.030) Urine Protein (Negative) Urine Glucose (UA) (Negative) mg/dL Urine Ketones (Negative) Urine Blood (Negative) Urine Nitrite (Negative) Urine Bilirubin (Negative) Urine Urobilinogen (0.2) mg/dL Ur Leukocyte Esterase (Negative) U Hyaline Cast (Auto) (0-2) /LPF Urine Microscopic RBC (0-5) /HPF Urine Microscopic WBC (0-5) /HPF Ur Epithelial Cells (None Seen) /HPF Urine Bacteria (None Seen) /HPF Urine Culture Reflexed (NO) Slides for Path Review YES - Progress Progress: improved, re-examined Counseled pt/family regarding: lab results, diagnosis, rad results <AVIVA SIERRA - Last Filed: 08/12/25 19:10> <SANTO ABRAMS - Last Filed: 08/12/25 22:12> - Progress Progress Note: 08/12/25 19:11 My medical decision making and the assignment of moderate to high complexity of this patient's medical issue today is based on review of the patient's past medical history, reviewed patient's medication list, reviewed patient drug allergy list, history present illness and physical findings on examination. The workup in this patient includes CT scan of the head without contrast, urinalysis, CBC, CMP, twelve-lead EKG, magnesium level. Differential diagnosis includes was not limited to acute intracranial abnormality, hypoglycemia, urinary tract infection, dehydration, arrhythmia, electrolyte abnormalities The urinalysis is still pending. The remainder of her lab work does not appear to be acute. The GFR is slightly low at 48. CT scan of the head without contrast was interpreted by the radiologist and I reviewed the impression. 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 Although the patient is clinically nonfocal, we will obtain teleneuro consultation as well as order a CT angio of the neck and CTA of the head. I am transferring care of this patient to Dr. Santo Abrams at shift change. He will follow-up with the pending studies and make final disposition. (AVIVA SIERRA) Spoke to neurologist who advises admission for MRI. He advises holding Eliquis and administering a full dose of aspirin 325. Spoke to neurologist at 9:44 PM 08/12/25 21:47 CTA head shows no comps. Very minimal calcification to the left parasellar ICA. Remaining CTA head normal CTA neck shows mild left ICA and minimal right ICA calcifications without critical stenosis or obstruction. Osteopenia and C4-C7 degenerative disc disease. Remaining CTA neck negative 08/12/25 21:51 Case discussed with hospitalist Dr. Finn delvalle admission to observation at 9:58 PM. Plan of care discussed with patient. She agrees to admission at [facility] for further evaluation and treatment. 08/12/25 22:12 (SANTO ABRAMS) Medical Desision Making - Independent Historian Additional History obtained from: Family, Lump Maker/EMT <AVIVA SIERRA - Last Filed: 08/12/25 19:10> - Departure Departure Disposition: Observation Critical Care Time: Yes Critical Care Time(excluding separately billable procedures): Critical 30-74 mins (45) <AVIVA SIERRA - Last Filed: 08/12/25 19:10> <SANTO ABRAMS - Last Filed: 08/12/25 22:12> - Departure Clinical Impression: Altered mental status, Hypoglycemia Condition: Stable Referrals: GUCCI DONOVAN NP [Primary Care Provider, [facility]] - Follow up/PCP as directed
[2025-08-12] MEDS ORDERED: D50W 50 ml Abboject IV ONE (14:46)
[2025-08-12] MEDS: D50W 50 ml Abboject IV ONE (14:52)
[2025-08-12 15:31] LABS: BASOPHIL % 0.6 % (0.1-1.2); Basophil (Absolute #) 0.03 x10^3/uL (0.01-0.08); Eosinophil (Absolute #) 0.08 x10^3/uL (0.04-0.36); Hematocrit 48.4 % (34.1-44.9); Hemoglobin 15.9 g/dL (11.2-15.7); IMMATURE GRAN # 0.01 x10^3u/L (0.001-0.031); IMMATURE GRAN % 0.2 % (0.001-0.429); Lymphocyte (Absolute #) 1.24 x10^3/uL (1.18-3.74); Mean Corpuscular Hemoglobin 30.5 pg (25.6-32.2); Mean Corpuscular Hgb Concent. 32.9 g/dL (32.2-35.5); Monocyte (Absolute #) 0.30 x10^3/uL (0.24-0.86); NUCLEATED RBC # 0.00 x10^3u/L (0.00-0.012); NUCLEATED RBC % 0.0 % (0.00-0.2); Platelet Count 88 x10^3/uL (182-369); Red Blood Count 5.21 x10^6/uL (3.93-5.22); White Blood Count 5.0 x10^3/uL (3.98-10.04)
[2025-08-12 15:43] LABS: Calcium 9.7 mg/dL (8.4-10.2); Carbon Dioxide 22.0 mmol/L (22-30); Creatinine 1 1.18 mg/dL (0.52-1.04); EST GLOMERULAR FILTRATION RATE 48.5 ML/MIN; Glucose 97.0 mg/dL (74-106); Potassium 3.6 mmol/L (3.5-5.1); SGOT/AST 46.0 U/L (14-36); SGPT/ALT 20.0 U/L (0-35); Total Protein 7.7 g/dL (6.3-8.2)
[2025-08-12 15:52] LABS: Slide Review 1 YES
--- NOTE | 2025-08-12 16:28 | XRAY ---
Indication: Slurred speech. Multiple contiguous axial images obtained through the head without contrast. Comparison: July 21, 2017 Again age-appropriate global atrophy with progressive mild bilateral periventricular degenerative microischemia bilaterally. Stable right caudate head remote lacunar infarct. New lacunar infarct left basal ganglia. No acute intracranial hemorrhage, abnormal extra-axial fluid collection, or mass effect. 4th ventricle is midline without hydrocephalus. Bony calvarium intact. Visualized paranasal sinuses and mastoid air cells are clear. Impression: Nonacute senile brain with stable remote right caudate head lacunar infarct and new lacunar infarct left basal ganglia..
[2025-08-12 20:06] LABS: Glucose, Urine Negative (Negative); Protein,Urine Dip 30 (Negative); RBC 0-2 /HPF (0-5); WBC 0-2 /HPF (0-5)
[2025-08-12] MEDS ORDERED: Levofloxacin 500MG/100ML D5W 500 MG/100 ML BAG IV ONE (20:25)
[2025-08-12] MEDS: Levofloxacin 500MG/100ML D5W 500 MG/100 ML BAG IV STA (20:26)
--- NOTE | 2025-08-12 21:52 | PCM.CONS ---
History of Present Illness - Reason for Consult Chief Complaint: Aphasia, right sided focal deficits Date of Consultation Date: 08/12/25 Reason for Consult: Stroke Requesting Provider: Dr. Abrams Consulting Provider: TONNY QUESADA MD History of Present Illness: [facility] Consultation Reason for Consultation: Stroke Chief complaint: Weakness, slurred speech, Unable to talk LKW: 0800 Time called: 2125 Patient seen: 2130 Spoke to ER: 2144 HPI: This is a 75-year-old female with past medical history of diabetes, hypertension, atrial fibrillation on Eliquis who presented to the hospital with symptoms characterized by right-sided weakness, numbness as well as inability to talk. She told me that symptoms started at around 8 PM. She woke up at around 6:30 AM. When EMS came in, she had a low blood glucose of 50s. She was given amp of D50. Patient got a CAT scan which showed old right lacunar stroke as well as relatively new hypodensity in the left basal ganglia. She is doing better now. Stroke scale is 0. She is not a candidate for thrombolytic because symptom onset is more than 4-1/2 hours. Angiogram studies are pending. Med Hx, Surgical Hx, Family Hx, Social hx reviewed Labs, Vitals, imaging personally reviewed. Review of Systems: 12-point review of systems is negative unless mentioned in HPI Physical Exam: (done with the help of RN) Constitutional: Gen: NAD, pleasant, well nourished HEENT: NC/AT YUE, Neurologic Exam: Higher Functions: AA&Ox3; Tracks; Regards Follows simple and complex commands Communicates fluently and appropriately Language : Comprehension is intact; no aphasia; no dysarthria; repetition is intact; naming is normal; CN II : Visual calix are full; CN III, IV, : EOMI; pursuit is smooth; no nystagmus CN V : Facial sensation is full and symmetric CN VII : Facial movement is full and symmetric CN VIII : hearing intact BL CN IX, X : unable to assess CN XI : SCM 5/5 BL CN XII : Tongue protrudes midline Sensory : intact to soft touch Motor : Strength 5/5 UE and LE BL Deep tendon reflexes : unable to assess Plantar response : unable to assess [id number] : normal BL, no dysmetria [id number] : normal BL, no dysmetria Abnormal Movements : none seen Gait and Station : Deferred due to medical condition NIH Stroke Scale 0 (0) 1a. Level of consciousness (LOC): 0=alert;1=arousable by minor stimulation;2=obtunded or needs strong stimulation to attend;3=unresponsive or reflex responses only (0) 1b. LOC Questions: 0=answers both;1=answers one;2=answers neither (0) 1c. LOC Commands: 0=performs both tasks;1=performs one task;2=performs neither task (0) 2. Best Gaze: 0=normal;1=partial gaze palsy;2=forced deviation or total gaze paresis (0) 3. Visual: 0=normal;1=partial hemianopia;2=complete hemianopia;3=blind (0) 4. Facial palsy: 0=normal;1=minor paresis;2=partial paralysis;3=complete paralysis FOR 5 AND 6 BELOW: 0=normal;1=drifts but maintains in air;2=unable to maintain in air;3=moves but unable to lift against gravity;4=no movement (0)0 (_)1 (_)2 (_)3 (_)4 (_)NA 5a. Motor arm-left (0)0 (_)1 (_)2 (_)3 (_)4 (_)NA 5b. Motor arm-right (0)0 (_)1 (_)2 (_)3 (_)4 (_)NA 6a. Motor leg-left (0)0 (_)1 (_)2 (_)3 (_)4 (_)NA 6ba. Motor leg-right (0) 7. Limb ataxia:0=absent;1=unilateral;2=bilateral; NA=unable to test (0) 8. Sensory: 0=normal;1=mild-moderate loss;2-severe or total loss (0) 9. Best language: 0=normal;1=mild-moderate aphasia, some deficits apparent but able to communicate;2=severe aphasia, fragmentary expression only, unable to communicate well;3=global aphasia, mute and no comprehension (0) 10. Dysarthria: 0=normal;1=mild-moderate, slurs some words;2=severe, speech mostly unintelligible; NA=unable to test (e.g.,intubation) (0) 11. Extinction/Inattention: 0=normal;1=visual,tactile,auditory or other extinction to bilateral simultaneous stimulation, but no severe neglect;2=answers neither Assessment: 75-year-old female presented to the hospital with a right-sided weakness/numbness as well as aphasia. 1. Right-sided weakness/numbness/aphasia: #2 hypoglycemia: Symptoms started today at around 8 AM this morning. Patient noted that she was feeling numb and weak on the right side. She also could not speak very well. When EMS came, her blood glucose was in 50s. She was given an amp of D50. CAT scan shows hypodensity in the left basal ganglia as well as old infarct in the right caudate head. The symptoms of right sided focal deficits along with aphasia could be from the left basal ganglia hypodensity (stroke) versus focal neurosymptoms in the setting of hypoglycemia Plan: Permissive HTN, treat if pressure is more than 220 /[address] CT angiogram head and neck MRI brain 2D echo w bubble ASA 325 mg now Hold Eliquis till we get more clarification on MRI regarding the stroke volume (if any) Atorvastatin 40 mg daily The above anti-platelet recommendation may change pending the stroke workup such as echo and MRI Stroke labs Stroke education Risk factor modification PT OT ST DVT prophylaxis-WOJCIECH/SCDs Communicated plan with Dr. Abrams Thank you for allowing us to participate in this patients care. Please call [facility] with questions, concerns, or change in patients neurological status. This consult was performed via secure telemedicine 2 way audio/visual platform, patient consent obtained. This note was partially generated using a Dictation system, and there may be some incorrect words, spellings, and punctuation that were not noted in checking the note before saving. For clarifications, please call [facility]. Medications & Allergies Home Medications: Home Medication List Carvedilol 12.5 mg [Coreg 12.5 mg] 25 mg PO BID 02/26/13 [History Confirmed 08/12/25] Omeprazole 20 MG [Prilosec 20 mg] 20 mg PO DAILY 02/26/13 [History Confirmed 08/12/25] Rosuvastatin Calcium [Crestor] 20 mg PO DAILY 02/27/13 [History Confirmed 08/12/25] Sitagliptin Phosphate 50 MG [Januvia 50 MG] 100 mg PO DAILY 02/27/13 [History Confirmed 08/12/25] Apixaban [Eliquis] 5 mg PO BID 04/20/15 [History Confirmed 08/12/25] Gabapentin Enacarbil [Horizant] 600 mg PO TID 12/15/15 [History Confirmed 08/12/25] Hydralazine HCl 25 mg PO BID 07/14/16 [History Confirmed 08/12/25] Brimonidine Tartrate/Pf [Lumify 0.025% Eye Drop] 1 each OP HS 08/12/25 [History Confirmed 08/12/25] Calcium Polycarbophil 625 mg [Fibercon 625 mg] 625 mg PO BID 08/12/25 [History Confirmed 08/12/25] Cyanocobalamin 1000 Mcg/ml [Cyanocobalamin B-12 1000 MCG/ML] 1 ml PO UD 08/12/25 [History Confirmed 08/12/25] Glipizide 5 mg [Glucotrol 5 MG] 5 mg PO BID 08/12/25 [History Confirmed 08/12/25] [place]-3/Dha/Epa/Fish Oil [Fish Oil 1,000 mg Softgel] 1 each PO DAILY 08/12/25 [History Confirmed 08/12/25] Pregabalin [Lyrica 100Mg] 100 mg PO DAILY 08/12/25 [History Confirmed 08/12/25] Pregabalin [Lyrica 100Mg] 200 mg PO HS 08/12/25 [History Confirmed 08/12/25] Allergies/Adverse Reactions: Allergies Allergy/AdvReac Type Severity Reaction Status Date / Time amoxicillin trihydrate Allergy Verified 10/12/23 15:14 [From Augmentin] clindamycin Allergy Verified 10/12/23 15:14 niacin [Niacin] Allergy Verified 10/12/23 15:14 potassium clavula Allergy Verified 10/12/23 15:14 *RETIRED-01/15/13 [From Augmentin] - Past Medical History Past Medical History: Yes Neurological History: Peripheral Neuropathy ENT History: Other Cardiac History: Arrhythmia, Hypertension Respiratory History: No Pertinent History Endocrine Medical History: Diabetes Type II Musculoskelatal History: Fractures, Osteoarthritis GI Medical History: No Pertinent History History: No Pertinent History Pyscho-Social History: No Pertinent History Reproductive Disorders: No Pertinent History Comment: R TKA - Past Surgical History Past Surgical History: Yes Neuro Surgical History: No Pertinent History Cardiac History: No Pertinent History Respiratory Surgery: No Pertinent History GI Surgical History: Appendectomy Genitourinary Surgical Hx: No Pertinent History Musculskeletal Surgical Hx: Joint Replacement Female Surgical History: Hysterectomy, Tubal Ligation Other Surgical History: tonsillectomy,. RIGHT KNEE REPLACED, right femur ike Significant Family History: no pertinent family hx - Social History Smoking Status: Current every day smoker How long have you smoked: 30 Exposure to second hand smoke: Yes Alcohol: Occasionally Drug Use: none - Social Determinants of Health Will the patient participate in the screening: Declined to provide - Physical Exam Vital Signs: Vital Signs - 24 hr Temp Pulse Resp BP BP Pulse Ox 08/12/25 21:15 67 9 L 108/48 96 08/12/25 21:00 68 19 100/53 97 08/12/25 20:45 68 17 105/53 97 08/12/25 20:30 76 15 106/50 97 08/12/25 20:16 67 8 L 120/59 97 08/12/25 20:15 89 18 95 08/12/25 19:45 84/53 08/12/25 19:30 67 10 L 95/49 95 08/12/25 19:15 69 11 L 88/53 93 L 08/12/25 19:00 75 9 L 99/49 96 08/12/25 18:45 77 13 92/45 95 08/12/25 18:32 75 16 94/52 98 08/12/25 18:30 68 10 L 97/53 96 08/12/25 18:15 73 12 104/50 98 08/12/25 18:00 66 7 L 117/55 97 08/12/25 17:49 67 12 105/40 97 08/12/25 17:32 86/36 98 08/12/25 17:30 69 8 L 102/45 98 08/12/25 17:00 77 16 100/51 98 08/12/25 16:31 72 8 L 94/50 97 08/12/25 16:30 73 12 84/51 98 08/12/25 16:22 68 22 115/41 98 08/12/25 16:20 74 7 L 99 08/12/25 16:10 79 9 L 98 08/12/25 16:02 108 H 25 H 08/12/25 15:52 108 H 24 103/51 98 08/12/25 15:51 67 12 98 08/12/25 15:50 69 10 L 98 08/12/25 15:42 78 11 L 91 L 08/12/25 15:30 65 14 08/12/25 15:00 73 19 141/72 99 08/12/25 14:30 68 20 148/76 98 08/12/25 14:29 74 13 98 08/12/25 14:12 95.7 F 88 22 155/88 98 Results - Labs Lab/Micro Results: Lab Results-Last 24 Hours 08/12/25 08/12/25 08/12/25 Range/Units 15:20 15:20 15:25 WBC 5.0 (3.98-10.04) x10^3/uL RBC 5.21 (3.93-5.22) x10^6/uL Hgb 15.9 H (11.2-15.7) g/dL Hct 48.4 H (34.1-44.9) % MCV 92.9 (79.4-94.8) fL MCH 30.5 (25.6-32.2) pg MCHC 32.9 (32.2-35.5) g/dL RDW 14.6 H (11.7-14.4) % Plt Count 88 L (182-369) x10^3/uL MPV 12.9 H (9.4-12.3) fL Gran % 66.6 (34.0-71.1) % Immature Gran % (Auto) 0.2 (0.001-0.429) % Nucleat RBC Rel Count 0.0 (0.00-0.2) % Eos # (Auto) 0.08 (0.04-0.36) x10^3/uL Immature Gran # (Auto) 0.01 (0.001-0.031) x10^3u/L Absolute Lymphs (auto) 1.24 (1.18-3.74) x10^3/uL Absolute Monos (auto) 0.30 (0.24-0.86) x10^3/uL Absolute Nucleated RBC 0.00 (0.00-0.012) x10^3u/L Lymphocytes % 25.0 (19.3-51.7) % Monocytes % 6.0 (4.7-12.5) % Eosinophils % 1.6 (0.7-5.8) % Basophils % 0.6 (0.1-1.2) % Absolute Granulocytes 3.30 (1.56-6.13) x10^3/uL Basophils # 0.03 (0.01-0.08) x10^3/uL Sodium 139 (135-145) mmol/L Potassium 3.6 (3.5-5.1) mmol/L Chloride 104 (98-107) mmol/L Carbon Dioxide 22 (22-30) mmol/L Anion Gap 17.1 H (5-15) MEQ/L BUN 22 H (7-17) mg/dL Creatinine 1.18 H (0.52-1.04) mg/dL Estimated GFR 48.5 ML/MIN Glucose 97 (74-106) mg/dL POC Glucometer (74 to 106) mg/dL Lactic Acid 1.5 (0.4-2.0) Calcium 9.7 (8.4-10.2) mg/dL Magnesium 2.2 (1.6-2.3) mg/dL Total Bilirubin 1.70 H (0.2-1.3) mg/dL AST 46 H (14-36) U/L ALT 20 (0-35) U/L Alkaline Phosphatase 51 (38-126) U/L Serum Total Protein 7.7 (6.3-8.2) g/dL Albumin 4.6 (3.5-5.0) g/dL Urine Color (Yellow) Urine Appearance (Clear) Urine pH (4.6-8.0) Ur Specific [place] (1.005-1.030) Urine Protein (Negative) Urine Glucose (UA) (Negative) mg/dL Urine Ketones (Negative) Urine Blood (Negative) Urine Nitrite (Negative) Urine Bilirubin (Negative) Urine Urobilinogen (0.2) mg/dL Ur Leukocyte Esterase (Negative) U Hyaline Cast (Auto) (0-2) /LPF Urine Microscopic RBC (0-5) /HPF Urine Microscopic WBC (0-5) /HPF Ur Epithelial Cells (None Seen) /HPF Urine Bacteria (None Seen) /HPF Urine Culture Reflexed (NO) Slides for Path Review YES 08/12/25 08/12/25 Range/Units 16:34 18:46 WBC (3.98-10.04) x10^3/uL RBC (3.93-5.22) x10^6/uL Hgb (11.2-15.7) g/dL Hct (34.1-44.9) % MCV (79.4-94.8) fL MCH (25.6-32.2) pg MCHC (32.2-35.5) g/dL RDW (11.7-14.4) % Plt Count (182-369) x10^3/uL MPV (9.4-12.3) fL Gran % (34.0-71.1) % Immature Gran % (Auto) (0.001-0.429) % Nucleat RBC Rel Count (0.00-0.2) % Eos # (Auto) (0.04-0.36) x10^3/uL Immature Gran # (Auto) (0.001-0.031) x10^3u/L Absolute Lymphs (auto) (1.18-3.74) x10^3/uL Absolute Monos (auto) (0.24-0.86) x10^3/uL Absolute Nucleated RBC (0.00-0.012) x10^3u/L Lymphocytes % (19.3-51.7) % Monocytes % (4.7-12.5) % Eosinophils % (0.7-5.8) % Basophils % (0.1-1.2) % Absolute Granulocytes (1.56-6.13) x10^3/uL Basophils # (0.01-0.08) x10^3/uL Sodium (135-145) mmol/L Potassium (3.5-5.1) mmol/L Chloride (98-107) mmol/L Carbon Dioxide (22-30) mmol/L Anion Gap (5-15) MEQ/L BUN (7-17) mg/dL Creatinine (0.52-1.04) mg/dL Estimated GFR ML/MIN Glucose (74-106) mg/dL POC Glucometer 169 H (74 to 106) mg/dL Lactic Acid (0.4-2.0) Calcium (8.4-10.2) mg/dL Magnesium (1.6-2.3) mg/dL Total Bilirubin (0.2-1.3) mg/dL AST (14-36) U/L ALT (0-35) U/L Alkaline Phosphatase (38-126) U/L Serum Total Protein (6.3-8.2) g/dL Albumin (3.5-5.0) g/dL Urine Color Yellow (Yellow) Urine Appearance Cloudy A (Clear) Urine pH 5.5 (4.6-8.0) Ur Specific [place] 1.015 (1.005-1.030) Urine Protein 30 (Negative) Urine Glucose (UA) Negative (Negative) mg/dL Urine Ketones Negative (Negative) Urine Blood Negative (Negative) Urine Nitrite Positive A (Negative) Urine Bilirubin Negative (Negative) Urine Urobilinogen 1.0 A (0.2) mg/dL Ur Leukocyte Esterase Negative (Negative) U Hyaline Cast (Auto) 3-5 A (0-2) /LPF Urine Microscopic RBC 0-2 (0-5) /HPF Urine Microscopic WBC 0-2 (0-5) /HPF Ur Epithelial Cells Few (None Seen) /HPF Urine Bacteria Many A (None Seen) /HPF Urine Culture Reflexed ORDERED SEPARATELY (NO) Slides for Path Review - Radiology Impressions Radiology Exams & Impressions: Radiology Procedures Category Date Time Status CT ANGIOGRAPHY NECK [CT] Stat Exams 08/12/25 19:16 Taken CTA HEAD W AND/OR WO CONTRAST [CT] Stat Exams 08/12/25 19:16 Taken HEAD WITHOUT CONTRAST [CT] Stat Exams 08/12/25 14:54 Completed
[2025-08-12] MEDS ORDERED: Zofran 4 MG/2 ML VIAL IV PRN (22:57)
[2025-08-12] MEDS ORDERED: HUMALOG SQ PRN (22:57)
[2025-08-12] MEDS ORDERED: Ecotrin 325 MG ONE (23:40)
[2025-08-12] MEDS: LIPITOR 40MG PO STA (23:53)
[2025-08-12] MEDS: Ecotrin 325 MG PO STA (23:53)
--- NOTE | 2025-08-13 00:20 | PCM.HP ---
History of Present Illness - Chief Complaint Chief Complaint: Aphasia, right sided focal deficits Date: 08/12/25 History of Present Illness: is a 75 year old female with a history of hyperlipidemia, gastroesophageal reflux disease, CKD, DM, and anticoagulation (on Eliquis) who presented to the ED because of low blood sugar in the 50s at home with associated slurred speech and right sided body numbness. Upon arrival to the emergency department, after the patient received an amp of D50, the patient was completely awake alert and oriented with a nonfocal neurologic exam. She denied chest pain and shortness of breath. She stated that she was aware what was happening and was surprised that her blood sugar was 50. Patient states that her primary prescribing providers have been adjusting different medications with a decrease in some of her diabetic medications as she has lost weight. CT scan showed a new stroke relative to prior imaging in 2017, but indeterminate if acute vs subacute vs chronic. In the ED, the patient was assessed by neurology with recommendations for MRI imaging, holding of Eliquis, and initiation of ASA. At the time of my assessment, the patient's granddaughter was at bedside. - Review of Systems Constitutional: No Symptoms Eyes: No Symptoms Ears, Nose, & Throat: No Symptoms Respiratory: No Symptoms Cardiac: No Symptoms Abdominal/Gastrointestinal: No Symptoms Genitourinary Symptoms: No Symptoms Musculoskeletal: No Symptoms Skin: No Symptoms Neurological: Parasthesia, Sensory Changes, Speech Changes, No Dizziness, No Focal Weakness, No Gait Changes, No Headache, No Irritability, No Lethargy, No Paralysis, No Seizure, No Tics, No Tremors, No Vertigo Endocrine: No Symptoms Hematologic/Lymphatic: No Symptoms Immunological/Allergic: No Symptoms All Other Systems: Reviewed and Negative Medications & Allergies Home Medications: Home Medication List Carvedilol 12.5 mg [Coreg 12.5 mg] 25 mg PO BID 02/26/13 [History Confirmed 08/12/25] Omeprazole 20 MG [Prilosec 20 mg] 20 mg PO DAILY 02/26/13 [History Confirmed 08/12/25] Rosuvastatin Calcium [Crestor] 20 mg PO DAILY 02/27/13 [History Confirmed 08/12/25] Sitagliptin Phosphate 50 MG [Januvia 50 MG] 100 mg PO DAILY 02/27/13 [History Confirmed 08/12/25] Apixaban [Eliquis] 5 mg PO BID 04/20/15 [History Confirmed 08/12/25] Gabapentin Enacarbil [Horizant] 600 mg PO TID 12/15/15 [History Confirmed 08/12/25] Hydralazine HCl 25 mg PO BID 07/14/16 [History Confirmed 08/12/25] Brimonidine Tartrate/Pf [Lumify 0.025% Eye Drop] 1 each OP HS 08/12/25 [History Confirmed 08/12/25] Calcium Polycarbophil 625 mg [Fibercon 625 mg] 625 mg PO BID 08/12/25 [History Confirmed 08/12/25] Cyanocobalamin 1000 Mcg/ml [Cyanocobalamin B-12 1000 MCG/ML] 1 ml PO UD 08/12/25 [History Confirmed 08/12/25] Glipizide 5 mg [Glucotrol 5 MG] 5 mg PO BID 08/12/25 [History Confirmed 08/12/25] [place]-3/Dha/Epa/Fish Oil [Fish Oil 1,000 mg Softgel] 1 each PO DAILY 08/12/25 [History Confirmed 08/12/25] Pregabalin [Lyrica 100Mg] 100 mg PO DAILY 08/12/25 [History Confirmed 08/12/25] Pregabalin [Lyrica 100Mg] 200 mg PO HS 08/12/25 [History Confirmed 08/12/25] Allergies/Adverse Reactions: Allergies Allergy/AdvReac Type Severity Reaction Status Date / Time amoxicillin trihydrate Allergy Verified 10/12/23 15:14 [From Augmentin] clindamycin Allergy Verified 10/12/23 15:14 niacin [Niacin] Allergy Verified 10/12/23 15:14 potassium clavula Allergy Verified 10/12/23 15:14 *RETIRED-01/15/13 [From Augmentin] - Past Medical History Past Medical History: Yes Neurological History: Peripheral Neuropathy ENT History: Other Cardiac History: Arrhythmia, Hypertension Respiratory History: No Pertinent History Endocrine Medical History: Diabetes Type II Musculoskelatal History: Fractures, Osteoarthritis GI Medical History: No Pertinent History History: No Pertinent History Pyscho-Social History: No Pertinent History Reproductive Disorders: No Pertinent History Comment: R TKA - Past Surgical History Past Surgical History: Yes Neuro Surgical History: No Pertinent History Cardiac History: No Pertinent History, Pacemaker Respiratory Surgery: No Pertinent History GI Surgical History: Appendectomy Genitourinary Surgical Hx: No Pertinent History Musculskeletal Surgical Hx: Joint Replacement Female Surgical History: Hysterectomy, Tubal Ligation Other Surgical History: tonsillectomy,. RIGHT KNEE REPLACED, right femur ike, Significant Family History: no pertinent family hx - Social History Smoking Status: Current every day smoker How long have you smoked: 30 Exposure to second hand smoke: Yes Alcohol: None, Occasionally Drug Use: none - Social Determinants of Health Will the patient participate in the screening: Declined to provide - Physical Exam Vital Signs: Vital Signs - 24 hr Temp Pulse Resp BP BP Pulse Ox 08/12/25 22:00 80 13 106/50 98 08/12/25 21:45 74 15 106/48 08/12/25 21:30 70 13 111/49 08/12/25 21:15 67 9 L 108/48 96 08/12/25 21:00 68 19 100/53 97 08/12/25 20:45 68 17 105/53 97 08/12/25 20:30 76 15 106/50 97 08/12/25 20:16 67 8 L 120/59 97 08/12/25 20:15 89 18 95 08/12/25 19:45 84/53 08/12/25 19:30 67 10 L 95/49 95 08/12/25 19:15 69 11 L 88/53 93 L 08/12/25 19:00 75 9 L 99/49 96 08/12/25 18:45 77 13 92/45 95 08/12/25 18:32 75 16 94/52 98 08/12/25 18:30 68 10 L 97/53 96 08/12/25 18:15 73 12 104/50 98 08/12/25 18:00 66 7 L 117/55 97 08/12/25 17:49 67 12 105/40 97 08/12/25 17:32 86/36 98 08/12/25 17:30 69 8 L 102/45 98 08/12/25 17:00 77 16 100/51 98 08/12/25 16:31 72 8 L 94/50 97 08/12/25 16:30 73 12 84/51 98 08/12/25 16:22 68 22 115/41 98 08/12/25 16:20 74 7 L 99 08/12/25 16:10 79 9 L 98 08/12/25 16:02 108 H 25 H 08/12/25 15:52 108 H 24 103/51 98 08/12/25 15:51 67 12 98 08/12/25 15:50 69 10 L 98 08/12/25 15:42 78 11 L 91 L 08/12/25 15:30 65 14 08/12/25 15:00 73 19 141/72 99 08/12/25 14:30 68 20 148/76 98 08/12/25 14:29 74 13 98 08/12/25 14:12 95.7 F 88 22 155/88 98 General Appearance: no apparent distress, alert Neurologic Exam: alert, oriented x 3, cooperative, dietitian consultant II-XII nml as tested, normal mood/affect, nml cerebellar function, sensation nml, No motor deficits, No sensory deficit, No disoriented, No confusion, No agitation Eye Exam: PERRL/EOMI, eyes nml inspection, No scleral icterus, No pale conjunctivae, No photophobia Ears, Nose, Throat Exam: normal ENT inspection Neck Exam: normal inspection, non-tender, supple, full range of motion, No meningismus Respiratory Exam: normal breath sounds, lungs clear, airway intact, No chest tenderness, No respiratory distress Cardiovascular Exam: regular rate/rhythm, normal heart sounds, No murmur, No friction rub, No gallop, No edema Gastrointestinal/Abdomen Exam: soft, normal bowel sounds, No distention, No mass, No guarding Back Exam: normal range of motion Extremity Exam: normal range of motion, No pedal edema, No swelling Skin Exam: normal color, No rash, No petechiae, No jaundice, No abrasion, No cyanosis Results - Labs Lab/Micro Results: Lab Results-Last 24 Hours 08/12/25 08/12/25 08/12/25 Range/Units 15:20 15:20 15:25 WBC 5.0 (3.98-10.04) x10^3/uL RBC 5.21 (3.93-5.22) x10^6/uL Hgb 15.9 H (11.2-15.7) g/dL Hct 48.4 H (34.1-44.9) % MCV 92.9 (79.4-94.8) fL MCH 30.5 (25.6-32.2) pg MCHC 32.9 (32.2-35.5) g/dL RDW 14.6 H (11.7-14.4) % Plt Count 88 L (182-369) x10^3/uL MPV 12.9 H (9.4-12.3) fL Gran % 66.6 (34.0-71.1) % Immature Gran % (Auto) 0.2 (0.001-0.429) % Nucleat RBC Rel Count 0.0 (0.00-0.2) % Eos # (Auto) 0.08 (0.04-0.36) x10^3/uL Immature Gran # (Auto) 0.01 (0.001-0.031) x10^3u/L Absolute Lymphs (auto) 1.24 (1.18-3.74) x10^3/uL Absolute Monos (auto) 0.30 (0.24-0.86) x10^3/uL Absolute Nucleated RBC 0.00 (0.00-0.012) x10^3u/L Lymphocytes % 25.0 (19.3-51.7) % Monocytes % 6.0 (4.7-12.5) % Eosinophils % 1.6 (0.7-5.8) % Basophils % 0.6 (0.1-1.2) % Absolute Granulocytes 3.30 (1.56-6.13) x10^3/uL Basophils # 0.03 (0.01-0.08) x10^3/uL Sodium 139 (135-145) mmol/L Potassium 3.6 (3.5-5.1) mmol/L Chloride 104 (98-107) mmol/L Carbon Dioxide 22 (22-30) mmol/L Anion Gap 17.1 H (5-15) MEQ/L BUN 22 H (7-17) mg/dL Creatinine 1.18 H (0.52-1.04) mg/dL Estimated GFR 48.5 ML/MIN Glucose 97 (74-106) mg/dL POC Glucometer (74 to 106) mg/dL Lactic Acid 1.5 (0.4-2.0) Calcium 9.7 (8.4-10.2) mg/dL Magnesium 2.2 (1.6-2.3) mg/dL Total Bilirubin 1.70 H (0.2-1.3) mg/dL AST 46 H (14-36) U/L ALT 20 (0-35) U/L Alkaline Phosphatase 51 (38-126) U/L Serum Total Protein 7.7 (6.3-8.2) g/dL Albumin 4.6 (3.5-5.0) g/dL Urine Color (Yellow) Urine Appearance (Clear) Urine pH (4.6-8.0) Ur Specific [place] (1.005-1.030) Urine Protein (Negative) Urine Glucose (UA) (Negative) mg/dL Urine Ketones (Negative) Urine Blood (Negative) Urine Nitrite (Negative) Urine Bilirubin (Negative) Urine Urobilinogen (0.2) mg/dL Ur Leukocyte Esterase (Negative) U Hyaline Cast (Auto) (0-2) /LPF Urine Microscopic RBC (0-5) /HPF Urine Microscopic WBC (0-5) /HPF Ur Epithelial Cells (None Seen) /HPF Urine Bacteria (None Seen) /HPF Urine Culture Reflexed (NO) Slides for Path Review YES 08/12/25 08/12/25 Range/Units 16:34 18:46 WBC (3.98-10.04) x10^3/uL RBC (3.93-5.22) x10^6/uL Hgb (11.2-15.7) g/dL Hct (34.1-44.9) % MCV (79.4-94.8) fL MCH (25.6-32.2) pg MCHC (32.2-35.5) g/dL RDW (11.7-14.4) % Plt Count (182-369) x10^3/uL MPV (9.4-12.3) fL Gran % (34.0-71.1) % Immature Gran % (Auto) (0.001-0.429) % Nucleat RBC Rel Count (0.00-0.2) % Eos # (Auto) (0.04-0.36) x10^3/uL Immature Gran # (Auto) (0.001-0.031) x10^3u/L Absolute Lymphs (auto) (1.18-3.74) x10^3/uL Absolute Monos (auto) (0.24-0.86) x10^3/uL Absolute Nucleated RBC (0.00-0.012) x10^3u/L Lymphocytes % (19.3-51.7) % Monocytes % (4.7-12.5) % Eosinophils % (0.7-5.8) % Basophils % (0.1-1.2) % Absolute Granulocytes (1.56-6.13) x10^3/uL Basophils # (0.01-0.08) x10^3/uL Sodium (135-145) mmol/L Potassium (3.5-5.1) mmol/L Chloride (98-107) mmol/L Carbon Dioxide (22-30) mmol/L Anion Gap (5-15) MEQ/L BUN (7-17) mg/dL Creatinine (0.52-1.04) mg/dL Estimated GFR ML/MIN Glucose (74-106) mg/dL POC Glucometer 169 H (74 to 106) mg/dL Lactic Acid (0.4-2.0) Calcium (8.4-10.2) mg/dL Magnesium (1.6-2.3) mg/dL Total Bilirubin (0.2-1.3) mg/dL AST (14-36) U/L ALT (0-35) U/L Alkaline Phosphatase (38-126) U/L Serum Total Protein (6.3-8.2) g/dL Albumin (3.5-5.0) g/dL Urine Color Yellow (Yellow) Urine Appearance Cloudy A (Clear) Urine pH 5.5 (4.6-8.0) Ur Specific [place] 1.015 (1.005-1.030) Urine Protein 30 (Negative) Urine Glucose (UA) Negative (Negative) mg/dL Urine Ketones Negative (Negative) Urine Blood Negative (Negative) Urine Nitrite Positive A (Negative) Urine Bilirubin Negative (Negative) Urine Urobilinogen 1.0 A (0.2) mg/dL Ur Leukocyte Esterase Negative (Negative) U Hyaline Cast (Auto) 3-5 A (0-2) /LPF Urine Microscopic RBC 0-2 (0-5) /HPF Urine Microscopic WBC 0-2 (0-5) /HPF Ur Epithelial Cells Few (None Seen) /HPF Urine Bacteria Many A (None Seen) /HPF Urine Culture Reflexed ORDERED SEPARATELY (NO) Slides for Path Review - Radiology Impressions Radiology Exams & Impressions: Radiology Procedures Category Date Time Status CT ANGIOGRAPHY NECK [CT] Stat Exams 08/12/25 19:16 Taken CTA HEAD W AND/OR WO CONTRAST [CT] Stat Exams 08/12/25 19:16 Taken ECHO W/2D AND DOPPLER [US] Routine Exams 08/12/25 22:59 Ordered HEAD WITHOUT CONTRAST [CT] Stat Exams 08/12/25 14:54 Completed MRI BRAIN W/O CONTRAST [MRI] Routine Exams 08/12/25 23:00 Ordered - Other Procedures and Tests Respiratory Therapy 08/12/25 22:57 EKG REPEAT IN AM Assessment/Plan (1) Stroke Current Visit: Yes Status: Acute Assessment & Plan: Per neurology recommendations, hold Eliquis and start ASA. Check ECHO, MRI brain. Start statin and check FLP and TSH. Monitor BP trend. Telemetry. AM EKG. PT/OT eval. Code(s): I63.9 - CEREBRAL INFARCTION, UNSPECIFIED (2) Slurred speech Current Visit: Yes Status: Acute Assessment & Plan: May be related to hypoglycemia. ST eval. Code(s): R47.81 - SLURRED SPEECH (3) Numbness Current Visit: Yes Status: Acute Assessment & Plan: Monitor with neuro checks. Code(s): R20.0 - ANESTHESIA OF SKIN (4) Hypoglycemia Current Visit: Yes Status: Acute Assessment & Plan: Hold Januvia and glipizide. Monitor sugar trend on ISS. Check HbA1c. Code(s): E16.2 - HYPOGLYCEMIA, UNSPECIFIED Telemedicine Encounter - Telemedicine Encounter Telemedicine Encounter: "The entirety of this encounter was performed via Telemedicine" This visit was performed using real-time audio and video connection between my location and thepatients locationwith the assistance of a surrogateat the patients location. Written or verbal consent was obtained from the patient/guardian to perform this visit [email or web address]. Any patient questions regarding the telemedicine interaction were answered. Please note that this admission required 49 minutes to complete.
[2025-08-13] MEDS ORDERED: Cardizem IV 50 MG/10 ML IV ONE (04:25)
[2025-08-13 05:03] LABS: BASOPHIL % 0.6 % (0.1-1.2); Basophil (Absolute #) 0.03 x10^3/uL (0.01-0.08); Eosinophil (Absolute #) 0.08 x10^3/uL (0.04-0.36); Hematocrit 40.2 % (34.1-44.9); Hemoglobin 13.3 g/dL (11.2-15.7); IMMATURE GRAN # 0.01 x10^3u/L (0.001-0.031); IMMATURE GRAN % 0.2 % (0.001-0.429); Lymphocyte (Absolute #) 1.43 x10^3/uL (1.18-3.74); Mean Corpuscular Hemoglobin 30.9 pg (25.6-32.2); Mean Corpuscular Hgb Concent. 33.1 g/dL (32.2-35.5); Monocyte (Absolute #) 0.47 x10^3/uL (0.24-0.86); NUCLEATED RBC # 0.00 x10^3u/L (0.00-0.012); NUCLEATED RBC % 0.0 % (0.00-0.2); Platelet Count 75 x10^3/uL (182-369); Red Blood Count 4.31 x10^6/uL (3.93-5.22); White Blood Count 4.9 x10^3/uL (3.98-10.04)
[2025-08-13 05:29] LABS: Calcium 8.9 mg/dL (8.4-10.2); Carbon Dioxide 25.0 mmol/L (22-30); Creatinine 1 1.21 mg/dL (0.52-1.04); EST GLOMERULAR FILTRATION RATE 47.0 ML/MIN; Glucose 88.0 mg/dL (74-106); Potassium 3.6 mmol/L (3.5-5.1); SGOT/AST 32.0 U/L (14-36); SGPT/ALT 14.0 U/L (0-35); Total Protein 5.7 g/dL (6.3-8.2)
[2025-08-13 05:54] LABS: Cholesterol 101.0 mg/dL (50-200); LDL, DIRECT 44.0 mg/dL (30-100); TRIGLYCERIDE 110.0 mg/dL (30-150)
[2025-08-13 06:29] LABS: Slide Review 1 YES
[2025-08-13] MEDS ORDERED: MEDICATION INTERVENTION MC SCH (07:45)
[2025-08-13] MEDS ORDERED: PHARMACY RENAL DOSING MC ONE (07:53)
[2025-08-13] MEDS: Cardizem IV 50 MG/10 ML IV ONE (07:57)
[2025-08-13] MEDS ORDERED: GlucaGen 1 MG IM PRN (08:05)
[2025-08-13] MEDS ORDERED: Glutose 15 GM/30 ml ORAL GEL PO PRN (08:05)
--- NOTE | 2025-08-13 08:45 | XRAY ---
Indication: Altered mental status. Conventional contrast-enhanced CTA neck performed using 100 cc Isovue 370 contrast. 2D sagittal and coronal reformatted images obtained. Additional 3D reformatted images obtained using separate workstation. Comparison: None Visualized aortic arch is minimally arteriosclerotic without aneurysm/dissection. Normal branching right brachiocephalic, left common carotid, and left subclavian arteries with mild scattered calcifications at their origins. Examination right carotid circulation demonstrates very minimal calcifications in distal common carotid artery/bulb. Minimal eccentric calcifications seen origin internal carotid artery without critical stenosis. Remaining internal carotid and external carotid arteries are normal in CTA appearance. Examination left carotid circulation also demonstrates very minimal scattered calcifications in common carotid artery. Widely patent carotid bulb. There is mild calcifications seen origin internal carotid artery producing approximately 30-40% stenosis. Minimal calcifications seen origin external carotid artery without critical stenosis. Vertebral arteries are bilaterally patent with the left slightly larger in caliber. Visualized soft tissues degraded by motion. Parotid and submandibular glands grossly bilaterally symmetric. Thyroid gland enhances homogeneously. No pathologic cervical/supraclavicular lymphadenopathy. Lung apices grossly clear with minimal bilateral dependent atelectasis. Osseous structures intact with osteopenia and moderate C4-C7 degenerative disc disease. Patient is edentulous. Impression: 1. Minimally arteriosclerotic aortic arch and great vessels. 2. Minimal right and minimal/mild left carotid arteriosclerotic disease as detailed. Negative for critical stenosis/obstruction. 3. Bilaterally patent vertebral arteries with dominant left vertebral artery. 4. Incidental osteopenia and C4-C7 degenerative disc disease.
--- NOTE | 2025-08-13 08:47 | XRAY ---
Indication: Altered mental status. Conventional contrast-enhanced CTA head performed using 100 cc Isovue 370 contrast. 2D sagittal and coronal reformatted images obtained. Additional 3D reformatted images obtained using separate workstation. Comparison: None Distal internal carotid artery arteries demonstrates minimal calcifications left parasellar segment without critical stenosis/obstruction. Remaining left and right internal carotid arteries are widely patent. Normal carotid terminus with normal branching A1 and M1 segments bilaterally. More distal anterior cerebral, middle cerebral, anterior communicating, and posterior communicating arteries are normal in CTA appearance. Posterior circulation demonstrates normal CTA appearance to the basilar, left/right posterior cerebral, left/right superior cerebellar, and left/right anterior inferior cerebellar arteries. Venous sinuses/drainage unremarkable. Brain parenchyma is negative for abnormal intra or extra-axial enhancement. Impression: Minimal calcifications left parasellar internal carotid artery without critical stenosis/obstruction. Remaining CTA head with contrast is normal.
[2025-08-13] MEDS: Protonix 40MG Tablet PO SCH (09:45)
[2025-08-13] MEDS: ECOTRIN 81 MG PO SCH (09:45)
[2025-08-13] MEDS: LYRICA 100MG PO SCH ×2 (09:45→21:52)
[2025-08-13] MEDS: FISH OIL 1,000 MG CAPSULE PO SCH (09:46)
[2025-08-13] MEDS: LIPITOR 40MG PO SCH (09:46)
[2025-08-13] MEDS: FIBERCON 625 MG PO SCH (09:47)
[2025-08-13] MEDS ORDERED: ENOXAPARIN SODIUM SQ SCH (10:00)
[2025-08-13] MEDS ORDERED: Apresoline 25 MG TABLET PO SCH (10:00)
[2025-08-13] MEDS ORDERED: ZOCOR 20MG PO SCH (10:00)
[2025-08-13] MEDS ORDERED: COREG 12.5 MG PO SCH (10:00)
[2025-08-13] MEDS: NEURONTIN PO SCH (10:03)
[2025-08-13] MEDS: Miralax Powder 17GM PACKET PO SCH (12:41)
--- NOTE | 2025-08-13 14:54 | PCM.NOTE ---
Date and Time: 08/13/25 1447 Subjective Assessment: Ms. Mcclure is a 75-year-old female with a history of hyperlipidemia, gastroesophageal reflux disease, chronic kidney disease, diabetes mellitus, and anticoagulation with Eliquis who presented to the ED on 08/12/25 with hypoglycemia in the 50s at home, associated with slurred speech and right-sided numbness. She received an amp of D50 in the ED and was immediately awake, alert, and oriented with a nonfocal neurologic exam. She denied chest pain or shortness of breath and reported being aware of her symptoms, though surprised by her low blood sugar. She noted recent adjustments to her diabetic medications due to weight loss. CT imaging revealed a new stroke compared to prior studies from 2017, though indeterminate for acuity. Neurology was consulted and recommended MRI imaging, holding Eliquis, and starting aspirin. On 08/13/25, the patient was sitting up in a chair with resolution of aphasia and right-sided deficits. PT, OT, and speech therapy evaluations were ordered. An echocardiogram was completed and results are pending. MRI of the brain could not be performed due to her pacemaker, and neurology was reconsulted for further recommendations. CT of the head demonstrated a new lacunar infarct. Aspirin 81 mg daily and Lipitor 40 mg daily was initiated per neurology. Her creatinine was stable at 1.21. Lovenox was held, and Eliquis remains on hold due to the stroke. Platelets were 75, consistent with chronically low counts on prior labs, though the patient was unaware of this history and has never seen hematology. She denied melena or hematochezia. She reported a 70-pound weight loss over the past 34 months, [address] CT of the chest, abdomen, and pelvis was ordered for further evaluation. She previously used Mounjaro, discontinued two months ago, and has not felt well since. Januvia and glipizide are currently held due to hypoglycemia at presentation. Blood glucose is monitored every four hours with hypoglycemia protocol in place. She was also found to have a UTI and started on renally dosed Levaquin. For constipation, MiraLAX was initiated per her preference. The patient denies depression but reports recent significant losses of a son and [id number]. At present, she denies further concerns. - Review of Systems Constitutional: Weight Loss (70 lbs), No Fever, No Chills Eyes: No Symptoms Ears, Nose, & Throat: No Symptoms Respiratory: No Cough, No Short Of Breath Cardiac: No Chest Pain, No Edema, No Syncope Abdominal/Gastrointestinal: Appetite Changes, No Abdominal Pain, No Nausea, No Vomiting, No Diarrhea Genitourinary Symptoms: No Dysuria Musculoskeletal: No Back Pain, No Neck Pain Skin: No Rash Neurological: No Dizziness, No Focal Weakness, No Sensory Changes Psychological: No Symptoms Endocrine: No Symptoms Hematologic/Lymphatic: No Symptoms Immunological/Allergic: No Symptoms Objective Exam General Appearance: no apparent distress, alert Neurologic Exam: alert, oriented x 3, cooperative, normal mood/affect, nml cerebellar function, sensation nml, No motor deficits Skin Exam: normal color, warm, dry Eye Exam: PERRL, EOMI, eyes nml inspection Ears, Nose, Throat Exam: normal ENT inspection, pharynx normal, moist mucous membranes Neck Exam: normal inspection, non-tender, supple, full range of motion Respiratory Exam: normal breath sounds, lungs clear, No respiratory distress Cardiovascular Exam: regular rate/rhythm, normal heart sounds Gastrointestinal/Abdomen Exam: soft, No tenderness, No mass Extremity Exam: normal inspection, normal range of motion Back Exam: normal inspection, normal range of motion, No CVA tenderness, No vertebral tenderness Pelvic Exam: deferred Rectal Exam: deferred Objective Data Vital Signs: Vital Signs - 24 hr Temp Pulse Resp BP BP Pulse Ox 08/13/25 12:00 96.7 F 61 16 116/57 97 08/13/25 07:32 96.7 F 67 16 99/56 97 08/13/25 04:00 96.6 F 63 16 93/55 97 08/12/25 22:34 98.3 F 80 18 89/50 95 08/12/25 22:00 80 13 106/50 98 08/12/25 21:45 74 15 106/48 08/12/25 21:30 70 13 111/49 08/12/25 21:15 67 9 L 108/48 96 08/12/25 21:00 68 19 100/53 97 08/12/25 20:45 68 17 105/53 97 08/12/25 20:30 76 15 106/50 97 08/12/25 20:16 67 8 L 120/59 97 08/12/25 20:15 89 18 95 08/12/25 19:45 84/53 08/12/25 19:30 67 10 L 95/49 95 08/12/25 19:15 69 11 L 88/53 93 L 08/12/25 19:00 75 9 L 99/49 96 08/12/25 18:45 77 13 92/45 95 08/12/25 18:32 75 16 94/52 98 08/12/25 18:30 68 10 L 97/53 96 08/12/25 18:15 73 12 104/50 98 08/12/25 18:00 66 7 L 117/55 97 08/12/25 17:49 67 12 105/40 97 08/12/25 17:32 86/36 98 08/12/25 17:30 69 8 L 102/45 98 08/12/25 17:00 77 16 100/51 98 08/12/25 16:31 72 8 L 94/50 97 08/12/25 16:30 73 12 84/51 98 08/12/25 16:22 68 22 115/41 98 08/12/25 16:20 74 7 L 99 08/12/25 16:10 79 9 L 98 08/12/25 16:02 108 H 25 H 08/12/25 15:52 108 H 24 103/51 98 08/12/25 15:51 67 12 98 08/12/25 15:50 69 10 L 98 08/12/25 15:42 78 11 L 91 L 08/12/25 15:30 65 14 08/12/25 15:00 73 19 141/72 99 Pain Assessment - Last Documented Pain Intensity 0 Intake and Output: Intake & Output 08/11/25 08/12/25 08/13/25 08/14/25 11:59 11:59 11:59 11:59 Intake Total 240 120 Output Total 600 Balance -360 120 Weight 71.6 kg Lab Results: Lab Results-Last 24 Hours 08/12/25 08/12/25 08/12/25 Range/Units 15:20 15:20 15:25 WBC 5.0 (3.98-10.04) x10^3/uL RBC 5.21 (3.93-5.22) x10^6/uL Hgb 15.9 H (11.2-15.7) g/dL Hct 48.4 H (34.1-44.9) % MCV 92.9 (79.4-94.8) fL MCH 30.5 (25.6-32.2) pg MCHC 32.9 (32.2-35.5) g/dL RDW 14.6 H (11.7-14.4) % Plt Count 88 L (182-369) x10^3/uL MPV 12.9 H (9.4-12.3) fL Gran % 66.6 (34.0-71.1) % Immature Gran % (Auto) 0.2 (0.001-0.429) % Nucleat RBC Rel Count 0.0 (0.00-0.2) % Eos # (Auto) 0.08 (0.04-0.36) x10^3/uL Immature Gran # (Auto) 0.01 (0.001-0.031) x10^3u/L Absolute Lymphs (auto) 1.24 (1.18-3.74) x10^3/uL Absolute Monos (auto) 0.30 (0.24-0.86) x10^3/uL Absolute Nucleated RBC 0.00 (0.00-0.012) x10^3u/L Lymphocytes % 25.0 (19.3-51.7) % Monocytes % 6.0 (4.7-12.5) % Eosinophils % 1.6 (0.7-5.8) % Basophils % 0.6 (0.1-1.2) % Absolute Granulocytes 3.30 (1.56-6.13) x10^3/uL Basophils # 0.03 (0.01-0.08) x10^3/uL Sodium 139 (135-145) mmol/L Potassium 3.6 (3.5-5.1) mmol/L Chloride 104 (98-107) mmol/L Carbon Dioxide 22 (22-30) mmol/L Anion Gap 17.1 H (5-15) MEQ/L BUN 22 H (7-17) mg/dL Creatinine 1.18 H (0.52-1.04) mg/dL Estimated GFR 48.5 ML/MIN Glucose 97 (74-106) mg/dL POC Glucometer (74 to 106) mg/dL Hemoglobin A1c (4.5-6.0) % Lactic Acid 1.5 (0.4-2.0) Calcium 9.7 (8.4-10.2) mg/dL Magnesium 2.2 (1.6-2.3) mg/dL Total Bilirubin 1.70 H (0.2-1.3) mg/dL AST 46 H (14-36) U/L ALT 20 (0-35) U/L Alkaline Phosphatase 51 (38-126) U/L Serum Total Protein 7.7 (6.3-8.2) g/dL Albumin 4.6 (3.5-5.0) g/dL Triglycerides (30-150) mg/dL Cholesterol (50-200) mg/dL LDL Cholesterol (30-100) mg/dL HDL Cholesterol (40-60) mg/dL Heart Disease Risk Ratio TSH 3rd Generation (0.470-4.680) mIU/L Urine Color (Yellow) Urine Appearance (Clear) Urine pH (4.6-8.0) Ur Specific [place] (1.005-1.030) Urine Protein (Negative) Urine Glucose (UA) (Negative) mg/dL Urine Ketones (Negative) Urine Blood (Negative) Urine Nitrite (Negative) Urine Bilirubin (Negative) Urine Urobilinogen (0.2) mg/dL Ur Leukocyte Esterase (Negative) U Hyaline Cast (Auto) (0-2) /LPF Urine Microscopic RBC (0-5) /HPF Urine Microscopic WBC (0-5) /HPF Ur Epithelial Cells (None Seen) /HPF Urine Bacteria (None Seen) /HPF Urine Culture Reflexed (NO) Slides for Path Review YES 08/12/25 08/12/25 08/13/25 Range/Units 16:34 18:46 04:20 WBC 4.9 (3.98-10.04) x10^3/uL RBC 4.31 (3.93-5.22) x10^6/uL Hgb 13.3 (11.2-15.7) g/dL Hct 40.2 (34.1-44.9) % MCV 93.3 (79.4-94.8) fL MCH 30.9 (25.6-32.2) pg MCHC 33.1 (32.2-35.5) g/dL RDW 14.7 H (11.7-14.4) % Plt Count 75 L (182-369) x10^3/uL MPV 13.4 H (9.4-12.3) fL Gran % 58.5 (34.0-71.1) % Immature Gran % (Auto) 0.2 (0.001-0.429) % Nucleat RBC Rel Count 0.0 (0.00-0.2) % Eos # (Auto) 0.08 (0.04-0.36) x10^3/uL Immature Gran # (Auto) 0.01 (0.001-0.031) x10^3u/L Absolute Lymphs (auto) 1.43 (1.18-3.74) x10^3/uL Absolute Monos (auto) 0.47 (0.24-0.86) x10^3/uL Absolute Nucleated RBC 0.00 (0.00-0.012) x10^3u/L Lymphocytes % 29.4 (19.3-51.7) % Monocytes % 9.7 (4.7-12.5) % Eosinophils % 1.6 (0.7-5.8) % Basophils % 0.6 (0.1-1.2) % Absolute Granulocytes 2.84 (1.56-6.13) x10^3/uL Basophils # 0.03 (0.01-0.08) x10^3/uL Sodium (135-145) mmol/L Potassium (3.5-5.1) mmol/L Chloride (98-107) mmol/L Carbon Dioxide (22-30) mmol/L Anion Gap (5-15) MEQ/L BUN (7-17) mg/dL Creatinine (0.52-1.04) mg/dL Estimated GFR ML/MIN Glucose (74-106) mg/dL POC Glucometer 169 H (74 to 106) mg/dL Hemoglobin A1c (4.5-6.0) % Lactic Acid (0.4-2.0) Calcium (8.4-10.2) mg/dL Magnesium (1.6-2.3) mg/dL Total Bilirubin (0.2-1.3) mg/dL AST (14-36) U/L ALT (0-35) U/L Alkaline Phosphatase (38-126) U/L Serum Total Protein (6.3-8.2) g/dL Albumin (3.5-5.0) g/dL Triglycerides (30-150) mg/dL Cholesterol (50-200) mg/dL LDL Cholesterol (30-100) mg/dL HDL Cholesterol (40-60) mg/dL Heart Disease Risk Ratio TSH 3rd Generation (0.470-4.680) mIU/L Urine Color Yellow (Yellow) Urine Appearance Cloudy A (Clear) Urine pH 5.5 (4.6-8.0) Ur Specific [place] 1.015 (1.005-1.030) Urine Protein 30 (Negative) Urine Glucose (UA) Negative (Negative) mg/dL Urine Ketones Negative (Negative) Urine Blood Negative (Negative) Urine Nitrite Positive A (Negative) Urine Bilirubin Negative (Negative) Urine Urobilinogen 1.0 A (0.2) mg/dL Ur Leukocyte Esterase Negative (Negative) U Hyaline Cast (Auto) 3-5 A (0-2) /LPF Urine Microscopic RBC 0-2 (0-5) /HPF Urine Microscopic WBC 0-2 (0-5) /HPF Ur Epithelial Cells Few (None Seen) /HPF Urine Bacteria Many A (None Seen) /HPF Urine Culture Reflexed ORDERED SEPARATELY (NO) Slides for Path Review YES 08/13/25 08/13/25 08/13/25 Range/Units 04:20 04:20 04:20 WBC (3.98-10.04) x10^3/uL RBC (3.93-5.22) x10^6/uL Hgb (11.2-15.7) g/dL Hct (34.1-44.9) % MCV (79.4-94.8) fL MCH (25.6-32.2) pg MCHC (32.2-35.5) g/dL RDW (11.7-14.4) % Plt Count (182-369) x10^3/uL MPV (9.4-12.3) fL Gran % (34.0-71.1) % Immature Gran % (Auto) (0.001-0.429) % Nucleat RBC Rel Count (0.00-0.2) % Eos # (Auto) (0.04-0.36) x10^3/uL Immature Gran # (Auto) (0.001-0.031) x10^3u/L Absolute Lymphs (auto) (1.18-3.74) x10^3/uL Absolute Monos (auto) (0.24-0.86) x10^3/uL Absolute Nucleated RBC (0.00-0.012) x10^3u/L Lymphocytes % (19.3-51.7) % Monocytes % (4.7-12.5) % Eosinophils % (0.7-5.8) % Basophils % (0.1-1.2) % Absolute Granulocytes (1.56-6.13) x10^3/uL Basophils # (0.01-0.08) x10^3/uL Sodium 137 (135-145) mmol/L Potassium 3.6 (3.5-5.1) mmol/L Chloride 105 (98-107) mmol/L Carbon Dioxide 25 (22-30) mmol/L Anion Gap 11.6 (5-15) MEQ/L BUN 23 H (7-17) mg/dL Creatinine 1.21 H (0.52-1.04) mg/dL Estimated GFR 47.0 ML/MIN Glucose 88 (74-106) mg/dL POC Glucometer (74 to 106) mg/dL Hemoglobin A1c 5.21 (4.5-6.0) % Lactic Acid (0.4-2.0) Calcium 8.9 (8.4-10.2) mg/dL Magnesium (1.6-2.3) mg/dL Total Bilirubin 0.80 (0.2-1.3) mg/dL AST 32 (14-36) U/L ALT 14 (0-35) U/L Alkaline Phosphatase 51 (38-126) U/L Serum Total Protein 5.7 L (6.3-8.2) g/dL Albumin 3.3 L (3.5-5.0) g/dL Triglycerides 110 (30-150) mg/dL Cholesterol 101 (50-200) mg/dL LDL Cholesterol 44 (30-100) mg/dL HDL Cholesterol 39 L (40-60) mg/dL Heart Disease Risk Ratio 3.0 TSH 3rd Generation 1.891 (0.470-4.680) mIU/L Urine Color (Yellow) Urine Appearance (Clear) Urine pH (4.6-8.0) Ur Specific [place] (1.005-1.030) Urine Protein (Negative) Urine Glucose (UA) (Negative) mg/dL Urine Ketones (Negative) Urine Blood (Negative) Urine Nitrite (Negative) Urine Bilirubin (Negative) Urine Urobilinogen (0.2) mg/dL Ur Leukocyte Esterase (Negative) U Hyaline Cast (Auto) (0-2) /LPF Urine Microscopic RBC (0-5) /HPF Urine Microscopic WBC (0-5) /HPF Ur Epithelial Cells (None Seen) /HPF Urine Bacteria (None Seen) /HPF Urine Culture Reflexed (NO) Slides for Path Review 08/13/25 08/13/25 Range/Units 07:26 11:45 WBC (3.98-10.04) x10^3/uL RBC (3.93-5.22) x10^6/uL Hgb (11.2-15.7) g/dL Hct (34.1-44.9) % MCV (79.4-94.8) fL MCH (25.6-32.2) pg MCHC (32.2-35.5) g/dL RDW (11.7-14.4) % Plt Count (182-369) x10^3/uL MPV (9.4-12.3) fL Gran % (34.0-71.1) % Immature Gran % (Auto) (0.001-0.429) % Nucleat RBC Rel Count (0.00-0.2) % Eos # (Auto) (0.04-0.36) x10^3/uL Immature Gran # (Auto) (0.001-0.031) x10^3u/L Absolute Lymphs (auto) (1.18-3.74) x10^3/uL Absolute Monos (auto) (0.24-0.86) x10^3/uL Absolute Nucleated RBC (0.00-0.012) x10^3u/L Lymphocytes % (19.3-51.7) % Monocytes % (4.7-12.5) % Eosinophils % (0.7-5.8) % Basophils % (0.1-1.2) % Absolute Granulocytes (1.56-6.13) x10^3/uL Basophils # (0.01-0.08) x10^3/uL Sodium (135-145) mmol/L Potassium (3.5-5.1) mmol/L Chloride (98-107) mmol/L Carbon Dioxide (22-30) mmol/L Anion Gap (5-15) MEQ/L BUN (7-17) mg/dL Creatinine (0.52-1.04) mg/dL Estimated GFR ML/MIN Glucose (74-106) mg/dL POC Glucometer 77 87 (74 to 106) mg/dL Hemoglobin A1c (4.5-6.0) % Lactic Acid (0.4-2.0) Calcium (8.4-10.2) mg/dL Magnesium (1.6-2.3) mg/dL Total Bilirubin (0.2-1.3) mg/dL AST (14-36) U/L ALT (0-35) U/L Alkaline Phosphatase (38-126) U/L Serum Total Protein (6.3-8.2) g/dL Albumin (3.5-5.0) g/dL Triglycerides (30-150) mg/dL Cholesterol (50-200) mg/dL LDL Cholesterol (30-100) mg/dL HDL Cholesterol (40-60) mg/dL Heart Disease Risk Ratio TSH 3rd Generation (0.470-4.680) mIU/L Urine Color (Yellow) Urine Appearance (Clear) Urine pH (4.6-8.0) Ur Specific [place] (1.005-1.030) Urine Protein (Negative) Urine Glucose (UA) (Negative) mg/dL Urine Ketones (Negative) Urine Blood (Negative) Urine Nitrite (Negative) Urine Bilirubin (Negative) Urine Urobilinogen (0.2) mg/dL Ur Leukocyte Esterase (Negative) U Hyaline Cast (Auto) (0-2) /LPF Urine Microscopic RBC (0-5) /HPF Urine Microscopic WBC (0-5) /HPF Ur Epithelial Cells (None Seen) /HPF Urine Bacteria (None Seen) /HPF Urine Culture Reflexed (NO) Slides for Path Review Radiology Exams: Radiology Procedures Category Date Time Status ABDOMEN AND PELVIS W&WO CONTRA [CT] Routine Exams 08/13/25 11:[address] ANGIOGRAPHY NECK [CT] Stat Exams 08/12/25 19:16 Completed CTA CHEST W AND/OR WO [CT] Routine Exams 08/13/25 11:13 Ordered CTA HEAD W AND/OR WO CONTRAST [CT] Stat Exams 08/12/25 19:16 Completed ECHO W/2D AND DOPPLER [US] Routine Exams 08/13/25 08:00 Taken HEAD WITHOUT CONTRAST [CT] Stat Exams 08/12/25 14:54 Completed MRI BRAIN W/O CONTRAST [MRI] Routine Exams 08/13/25 08:00 Stop Req Medications: Medications Generic Name Dose Route Start Last Admin Trade Name Freq PRN Reason Stop Dose Admin Acetaminophen 325 mg 08/12/25 22:57 Acetaminophen 325 Mg Tablet PO 09/11/25 22:56 Q4H PRN PRN PAIN, FEVER, HEADACHE Aspirin 81 mg 08/13/25 10:00 08/13/25 09:45 Aspirin 81 Mg Tablet.Ec PO 09/12/25 09:59 81 mg QAM CINDY Administration Atorvastatin Calcium 40 mg 08/13/25 10:00 08/13/25 09:46 Atorvastatin Calcium 40 Mg Tablet PO 09/12/25 09:59 40 mg DAILY CINDY Administration Calcium Polycarbophil 625 mg 08/13/25 10:00 08/13/25 09:47 Calcium Polycarbophil 625 Mg Tablet PO 09/12/25 09:59 625 mg BID CINDY Administration Carvedilol 25 mg 08/13/25 10:00 Carvedilol 12.5 Mg Tablet PO 09/12/25 09:59 BID CINDY Enoxaparin Sodium 40 mg 08/13/25 10:00 Enoxaparin Sodium 40 Mg/0.4 Ml Syringe SQ 09/12/25 09:59 DAILY [facility] Fish Oil 1,000 mg 08/13/25 10:00 08/13/25 09:46 [place]-3 Fatty Acids/Fish Oil 1000 Mg Capsule PO 09/12/25 09:59 1,000 mg DAILY CINDY Administration Glucagon 1 mg 08/13/25 08:05 Glucagon 1 Mg/Vial Vial IM 09/12/25 08:04 PRN PRN HYPOGLYCEMIA Glucose 15 gm 08/13/25 08:05 Dextrose 15 Gm Oral Gel 15 Gm/30 Ml Ml PO 09/12/25 08:04 PRN PRN HYPOGLYCEMIA Hydralazine HCl 25 mg 08/13/25 10:00 Hydralazine Hcl 25 Mg Tablet PO 09/12/25 09:59 BID CINDY Levofloxacin/Dextrose 250 mg in 50 mls @ 50 mls/hr 08/13/25 22:00 Levaquin 250mg/50ml D5w IV 09/12/25 21:59 QPM CINDY Insulin Human Lispro 0 unit 08/12/25 22:57 Insulin Lispro 1 Unit SQ 09/11/25 22:56 UD PRN HYPERGLYCEMIA Miscellaneous Information 1 each 08/13/25 07:45 Medication Intervention 1 Each Each 09/12/25 07:44 .RN TO CHECK CINDY Ondansetron HCl 4 mg 08/12/25 22:57 Ondansetron Hcl 4 Mg/2 Ml Vial IV 09/11/25 22:56 Q6H PRN PRN NAUSEA/VOMITING Pantoprazole Sodium 40 mg 08/13/25 10:00 08/13/25 09:45 Protonix (Pantoprazole) 40 Mg Tablet PO 09/12/25 09:59 40 mg DAILY CINDY Administration Polyethylene Glycol 17 gm 08/13/25 11:12 08/13/25 12:41 Polyethylene Glycol 3350 17 Gm Packet PO 09/12/25 11:11 17 gm DAILY CINDY Administration Pregabalin 100 mg 08/13/25 10:00 08/13/25 09:45 Pregabalin 100 Mg Capsule PO 09/12/25 09:59 100 mg DAILY CINDY Administration Pregabalin 200 mg 08/13/25 22:00 Pregabalin 100 Mg Capsule PO 09/12/25 21:59 HS CINDY Discontinued Medications Generic Name Dose Route Start Last Admin Trade Name Freq PRN Reason Stop Dose Admin Aspirin 325 mg 08/12/25 22:11 08/12/25 23:53 Aspirin 325 Mg Tablet.Ec PO 08/12/25 22:12 325 mg ONCE STA Administration Aspirin Confirm 08/12/25 23:40 Aspirin 325 Mg Tablet.Ec Administered 08/12/25 23:41 Dose 325 mg .ROUTE .STK-MED ONE Atorvastatin Calcium 40 mg 08/12/25 23:04 08/12/25 23:53 Atorvastatin Calcium 40 Mg Tablet PO 08/12/25 23:05 40 mg STAT STA Administration Dextrose Confirm 08/12/25 14:46 Dextrose 50%-Water 50 Ml Abboject Administered 08/12/25 14:47 Dose 50 ml IV .STK-MED ONE Dextrose 50 ml 08/12/25 14:51 08/12/25 14:52 Dextrose 50%-Water 50 Ml Abboject IV 08/12/25 14:52 50 ml STAT ONE Administration Diltiazem HCl 10 mg 08/13/25 04:24 08/13/25 07:57 Diltiazem Hcl Iv 5 Mg/Ml Vial IV 08/13/25 04:25 Not Given STAT ONE Diltiazem HCl Confirm 08/13/25 04:25 Diltiazem Hcl Iv 5 Mg/Ml Vial Administered 08/13/25 04:26 Dose 50 mg IV .STK-MED ONE Gabapentin 600 mg 08/13/25 10:00 08/13/25 10:03 Gabapentin 300 Mg Capsule PO 09/12/25 09:59 Not Given TID CINDY Sodium Chloride 500 mls @ 100 mls/hr 08/12/25 17:00 08/13/25 08:39 Sodium Chloride 0.9% 500 Ml IV 09/11/25 16:59 Not Given .Q5H CINDY Sodium Chloride Confirm 08/12/25 16:55 Sodium Chloride 0.9% 1000 Ml Administered 08/12/25 16:56 Dose 1,000 mls @ ud .ROUTE .STK-MED ONE Levofloxacin/Dextrose 500 mg in 100 mls @ 100 mls/hr 08/12/25 20:22 08/12/25 21:26 Levofloxacin 500mg/100ml D5w IV 08/12/25 21:21 Infused STAT STA Infusion Levofloxacin/Dextrose Confirm 08/12/25 20:25 Levofloxacin 500mg/100ml D5w Administered 08/12/25 20:26 Dose 500 mg in 100 mls @ ud IV .STK-MED ONE Sodium Chloride Confirm 08/12/25 16:57 Sodium Chloride 0.9% 500 Ml Administered 08/12/25 16:58 Dose 500 mls @ ud IV .STK-MED ONE Non-Formulary Medication 1 each 08/13/25 07:53 Pharmacy Dosing Request [facility] 08/13/25 07:54 STAT ONE Simvastatin 40 mg 08/13/25 10:00 Simvastatin 20 Mg Tablet PO 09/12/25 09:59 DAILY [facility] Multi-Disciplinary Progress Notes: Multi-Disciplinary Progress Notes 08/13/25 07:31 Pharmacy Note by Cheikh Garzon Please review if patient needs both Lyrica and Gabapentin. Initialized on 08/13/25 07:31 - END OF NOTE Assessment/Plan (1) Stroke Current Visit: Yes Status: Acute Assessment & Plan: - CT head: Impression: Nonacute senile brain with stable remote right caudate head lacunar infarct and new lacunar infarct left basal ganglia. - CTA head: Impression: Minimal calcifications left parasellar internal carotid artery without critical stenosis/obstruction. Remaining CTA head with contrast is normal. - CTA angio: Impression: 1. Minimally arteriosclerotic aortic arch and great vessels. 2. Minimal right and minimal/mild left carotid arteriosclerotic disease as detailed. Negative for critical stenosis/obstruction. 3. Bilaterally patent vertebral arteries with dominant left vertebral artery. 4. Incidental osteopenia and C4-C7 degenerative disc disease. - CBC, CMP reviewed - Neurology consulted, note reviewed and agree with plan of care - Lipitor 40mg daily - PT/ST/OT - HDL 39, lipid panel reviewed - Unable to have MRI d/t pacemaker- neuro reconsulted for recs - ASA 81 mg daily - Eliquis held - BP stable - Allow for permissive HTN - Echo- pending - EKG - Tele - TSH 1.891 Code(s): I63.9 - CEREBRAL INFARCTION, UNSPECIFIED (2) UTI (urinary tract infection) Current Visit: No Status: Acute Qualifiers: Urinary tract infection type: acute cystitis Hematuria presence: with hematuria Qualified Code(s): N30.01 - Acute cystitis with hematuria Assessment & Plan: - Levaquin- pharmacy to dose for renal function - UC pending - UA reviewed Code(s): N39.0 - URINARY TRACT INFECTION, SITE NOT SPECIFIED (3) Thrombocytopenia Current Visit: Yes Status: Chronic Assessment & Plan: - Appears chronic per old labs reviewed - PLT 75 today- trend - Eliquis and lovenox stopped (4) Weight loss, non-intentional Current Visit: Yes Status: Acute Assessment & Plan: - Reports 70 lb weight loss over 3-4 months - States she does not feel like eating - CT chest and Abd/pelvis pending - Occult stool- pending - Nutrition consult - Ensure high protein with meals Code(s): R63.4 - ABNORMAL WEIGHT LOSS (5) Hypoglycemia Current Visit: Yes Status: Acute Assessment & Plan: - Q4 accuchecks - Pt reports not wanting to eat - Nutrition consult - Ensure high protein with meals - Hypoglycemia protocol Code(s): E16.2 - HYPOGLYCEMIA, UNSPECIFIED (6) Slurred speech Current Visit: Yes Status: Resolved Assessment & Plan: - resolved since admission Code(s): R47.81 - SLURRED SPEECH (7) Diabetes Current Visit: No Status: Chronic Qualifiers: Diabetes mellitus type: type 2 Diabetes mellitus long term care pharmacist insulin use: without long term care pharmacist use Diabetes mellitus complication status: with kidney complications Diabetes mellitus complication detail: with chronic kidney disease Assessment & Plan: - Type II - Hypoglycemia protocol - Accuchecks Q4 - Hold oral diabetic meds - Humalog S/S - A1C 5.21- Controlled Code(s): E11.9 - TYPE 2 DIABETES MELLITUS WITHOUT COMPLICATIONS (8) Hypertension Current Visit: No Status: Chronic Assessment & Plan: - BP stable - Allow for permissive HTN Code(s): I10 - ESSENTIAL (PRIMARY) HYPERTENSION (9) Numbness Current Visit: Yes Status: Resolved Assessment & Plan: - resolved since admission Code(s): R20.0 - ANESTHESIA OF SKIN (10) CKD (chronic kidney disease) Current Visit: Yes Status: Chronic Assessment & Plan: - Creat 1.21 at baseline - Follows Dr. Bartholomew for nephrology Code(s): N18.9 - CHRONIC KIDNEY DISEASE, UNSPECIFIED (11) Constipation Current Visit: Yes Status: Chronic Assessment & Plan: - Miralax daily VTE: SCD PPI: Protonix Next of KIN: granddaughters D/C plan: 1-2 days Code status: Full Plan of care time: > 50 Minutes Code(s): K59.00 - CONSTIPATION, UNSPECIFIED
[2025-08-13] MEDS: Levaquin 250MG/50ML D5W 250 MG/50 ML BAG IV SCH (21:52)
[2025-08-14 05:18] LABS: Hematocrit 39.2 % (34.1-44.9); Hemoglobin 12.8 g/dL (11.2-15.7); Mean Corpuscular Hemoglobin 30.4 pg (25.6-32.2); Mean Corpuscular Hgb Concent. 32.7 g/dL (32.2-35.5); Platelet Count 74 x10^3/uL (182-369); Red Blood Count 4.21 x10^6/uL (3.93-5.22); White Blood Count 4.1 x10^3/uL (3.98-10.04)
[2025-08-14 06:17] LABS: Calcium 9.4 mg/dL (8.4-10.2); Carbon Dioxide 26.0 mmol/L (22-30); Creatinine 1 1.38 mg/dL (0.52-1.04); EST GLOMERULAR FILTRATION RATE 40.2 ML/MIN; Glucose 109.0 mg/dL (74-106); Potassium 3.5 mmol/L (3.5-5.1); SGOT/AST 35.0 U/L (14-36); SGPT/ALT 14.0 U/L (0-35); Total Protein 5.8 g/dL (6.3-8.2)
[2025-08-14 06:42] LABS: Slide Review YES
[2025-08-14 07:24] VITALS: O2SAT 99
--- NOTE | 2025-08-14 08:49 | XRAY ---
Indication: 70 lb weight loss 3 months. Multiple contiguous axial images obtained through the chest without contrast. Comparison: None Lungs inflated and clear. Heart not enlarged with scattered coronary calcifications and incidental mitral clip. Aorta is mildly arteriosclerotic without aneurysm. No pathologic mediastinal lymphadenopathy. Bony thorax intact with osteopenia and mild/moderate degenerative changes throughout spine. CT abdomen/pelvis reported separately. Impression: Chronic findings including arteriosclerotic disease, osteopenia, and degenerative spondylosis. Remaining CT chest without contrast is negative.
--- NOTE | 2025-08-14 08:57 | XRAY ---
Indication: 70 lb weight loss 3 months. Status post CTA neck and CTA head exams. Multiple contiguous axial images obtained through the abdomen and pelvis without contrast. Comparison: February 14, 2018 CT chest reported separately. Again previous gastric bariatric stapling. Noncontrasted stomach and bowel loops appear nonobstructed. Again mild diffuse scattered colonic fecal debris more than before with new mild rectal fecal impaction. Also there remains scattered colonic diverticulosis, appendectomy, and hysterectomy. Residual contrast seen in genitourinary tract system. Previous 3.5 cm left renal cyst demonstrates contrast communicating with renal collecting system. No hydronephrosis or hydroureter. Liver now demonstrates micronodular margins as seen with cirrhosis. No free fluid/air. Remaining liver, gallbladder, pancreas, spleen, adrenal glands, kidneys, ureters, and bladder are unremarkable. There remains moderate scattered aortoiliac calcifications without AAA. Osseous structures intact again with osteopenia, moderate multilevel degenerative spondylosis, double curvature scoliosis, and old proximal right femur fracture with incompletely visualized orthopedic hardware. Impression: 1. Worsening mild diffuse colonic fecal stasis with new rectal fecal impaction. 2. Again chronic findings including gastric bariatric surgery, colonic diverticulosis, left renal cyst, arteriosclerotic disease, and chronic bony findings. 3. Remaining CT abdomen/pelvis with contrast exam is negative.
[2025-08-14] MEDS: TYLENOL 325 MG PO PRN (09:04)
[2025-08-14 11:50] VITALS: BP 121/65; PULSE 93; RESP 18; TEMP 97.6
--- NOTE | 2025-08-14 12:07 | XRAY ---
Indication: Post stroke. Multiple contiguous axial images obtained through the head without contrast. Comparison: June 12, 2025 Stable age-appropriate global atrophy, mild periventricular degenerative microischemia bilaterally, and remote lacunar infarcts right caudate head/left basal ganglia. Again no acute intracranial hemorrhage, abnormal extra-axial fluid collection, or mass effect. 4th ventricle is midline without hydrocephalus. Bony calvarium intact. Visualized paranasal sinuses and mastoid air cells are clear. Impression: Grossly stable nonacute senile brain with lacunar infarcts right caudate head/left basal ganglia.
--- NOTE | 2025-08-14 12:42 | PCM.DS ---
Discharge Summary Date of Admission: 08/12/25 22:22 Date of Discharge: 08/14/25 Admitting Physician: SANDOVAL CARRION MD Consults: Consults on Case 08/13/25 14:59 Nutritional Consult ROUTINE Primary Care Provider: GUCCI VALENTIN Allergies Allergies amoxicillin trihydrate [From Augmentin] Allergy (Verified 10/12/23 15:14) clindamycin Allergy (Verified 10/12/23 15:14) niacin [Niacin] Allergy (Verified 10/12/23 15:14) potassium clavula *RETIRED-01/15/13 [From Augmentin] Allergy (Verified 10/12/23 15:14) NOT ALLERGIC Hospital Summary - Hospital Course Hospital Course: Ms. Mcclure is a 75-year-old female with a history of hyperlipidemia, gastroesophageal reflux disease, chronic kidney disease, diabetes mellitus, and anticoagulation with Eliquis who presented to the ED on 08/12/25 with hypoglycemia in the 50s at home, associated with slurred speech and right-sided numbness. She received an amp of D50 in the ED and was immediately awake, alert, and oriented with a nonfocal neurologic exam. She denied chest pain or shortness of breath and reported being aware of her symptoms, though surprised by her low blood sugar. She noted recent adjustments to her diabetic medications due to weight loss. CT imaging revealed a new stroke compared to prior studies from 2017, though indeterminate for acuity. Neurology was consulted and recommended MRI imaging, holding Eliquis, and starting aspirin. On 08/13/25, the patient was sitting up in a chair with resolution of aphasia and right-sided deficits. PT, OT, and speech therapy evaluations were ordered. An echocardiogram was completed and results are pending. MRI of the brain could not be performed due to her pacemaker, and neurology was reconsulted for further recommendations. CT of the head demonstrated a new lacunar infarct. Aspirin 81 mg daily and Lipitor 40 mg daily was initiated per neurology. Her creatinine was stable at 1.21. Lovenox was held, and Eliquis remains on hold due to the stroke. Platelets were 75, consistent with chronically low counts on prior labs, though the patient was unaware of this history and has never seen hematology. She denied melena or hematochezia. She reported a 70-pound weight loss over the past 34 months, and CT of the chest, abdomen, and pelvis was ordered for further evaluation. She previously used Mounjaro, discontinued two months ago, and has not felt well since. Januvia and glipizide are currently held due to hypoglycemia at presentation. Blood glucose is monitored every four hours with hypoglycemia protocol in place. She was also found to have a UTI and started on renally dosed Levaquin. For constipation, MiraLAX was initiated per her preference. The patient denies depression but reports recent significant losses of a son and [id number]. At present, she denies further concerns. 08/14/25 Patient sitting up in chair today and states she feels fine and is ready to go home. Repeat CT confirms previous diagnosis of remote stroke restarted Eliquis. Pt to f/u with neurology OP. CT abdomen pelvis as well as CT chest chest shows no acute concerning findings except for constipation. Continue MiraLAX and soapsuds enema x 1 ordered today. Creatinine is a little bit up at 1.38 and encourage patient to increase oral fluid intake. She refuses protein high ensure drinks but agreeable to Ensure clear to try. Nutrition consulted for further recs. CT abd/ pelvis showed possible cirrhosis of the liver. Hepatitis panel ordered for further eval and pt declining OP f/u and will discuss with PCP. UC gram negative and will continue to follow OP, will d/c with PO antibiotic. Pt has a hx of repeat UTI's with e-coli and PCP to consider OP referral to urology. If pt is able to have a BM she can d/c today. She denies any further concerns at this time. - Vitals & Intake/Output Vital Signs: Vital Signs Temperature 97.6 F 08/14/25 11:49 Pulse Rate 93 H 08/14/25 11:49 Respiratory Rate 18 08/14/25 11:49 Blood Pressure 121/65 08/14/25 11:49 O2 Sat by Pulse Oximetry 99 08/14/25 11:49 Intake & Output: Intake & Output 08/12/25 08/13/25 08/14/25 08/15/25 11:59 11:59 11:59 11:59 Intake Total 240 600 Output Total 600 Balance -360 600 Weight 71.6 kg - Lab Result Diagrams: 08/14/25 04:35 08/14/25 04:35 Lab Results-Last 24 Hrs: Lab Results-Last 24 Hours 08/13/25 08/13/25 08/14/25 Range/Units 16:05 21:16 04:34 WBC (3.98-10.04) x10^3/uL RBC (3.93-5.22) x10^6/uL Hgb (11.2-15.7) g/dL Hct (34.1-44.9) % MCV (79.4-94.8) fL MCH (25.6-32.2) pg MCHC (32.2-35.5) g/dL RDW (11.7-14.4) % Plt Count (182-369) x10^3/uL MPV (9.4-12.3) fL Sodium (135-145) mmol/L Potassium (3.5-5.1) mmol/L Chloride (98-107) mmol/L Carbon Dioxide (22-30) mmol/L Anion Gap (5-15) MEQ/L BUN (7-17) mg/dL Creatinine (0.52-1.04) mg/dL Estimated GFR ML/MIN Glucose (74-106) mg/dL POC Glucometer 97 136 H 110 H (74 to 106) mg/dL Calcium (8.4-10.2) mg/dL Total Bilirubin (0.2-1.3) mg/dL AST (14-36) U/L ALT (0-35) U/L Alkaline Phosphatase (38-126) U/L Serum Total Protein (6.3-8.2) g/dL Albumin (3.5-5.0) g/dL Slides for Path Review 08/14/25 08/14/25 08/14/25 Range/Units 04:35 04:35 10:04 WBC 4.1 (3.98-10.04) x10^3/uL RBC 4.21 (3.93-5.22) x10^6/uL Hgb 12.8 (11.2-15.7) g/dL Hct 39.2 (34.1-44.9) % MCV 93.1 (79.4-94.8) fL MCH 30.4 (25.6-32.2) pg MCHC 32.7 (32.2-35.5) g/dL RDW 15.0 H (11.7-14.4) % Plt Count 74 L (182-369) x10^3/uL MPV 14.2 H (9.4-12.3) fL Sodium 140 (135-145) mmol/L Potassium 3.5 (3.5-5.1) mmol/L Chloride 106 (98-107) mmol/L Carbon Dioxide 26 (22-30) mmol/L Anion Gap 12.0 (5-15) MEQ/L BUN 21 H (7-17) mg/dL Creatinine 1.38 H (0.52-1.04) mg/dL Estimated GFR 40.2 ML/MIN Glucose 109 H (74-106) mg/dL POC Glucometer 166 H (74 to 106) mg/dL Calcium 9.4 (8.4-10.2) mg/dL Total Bilirubin 0.70 (0.2-1.3) mg/dL AST 35 (14-36) U/L ALT 14 (0-35) U/L Alkaline Phosphatase 53 (38-126) U/L Serum Total Protein 5.8 L (6.3-8.2) g/dL Albumin 3.4 L (3.5-5.0) g/dL Slides for Path Review YES Micro Results-Entire Visit: Microbiology 08/12/25 18:46 Urine Culture - Preliminary Catherized GRAM NEGATIVE ID AND SENSITIVITY PENDING Accuchecks Date 08/14/25 Date 08/14/25 Date 08/13/25 Date 08/13/25 Time 04:20 Time 21:20 Time 16:41 - Radiology Exams Ordered Rad Exams-Entire Visit: Radiology Procedures Category Date Time Status ABDOMEN AND PELVIS W/0 CONTRAS [CT] Routine Exams 08/13/25 20:24 Completed CHEST WITHOUT CONTRAST [CT] Routine Exams 08/13/25 20:[address] ANGIOGRAPHY NECK [CT] Stat Exams 08/12/25 19:16 Completed CTA HEAD W AND/OR WO CONTRAST [CT] Stat Exams 08/12/25 19:16 Completed ECHO W/2D AND DOPPLER [US] Routine Exams 08/13/25 08:00 Taken HEAD WITHOUT CONTRAST [CT] Routine Exams 08/14/25 09:55 Completed HEAD WITHOUT CONTRAST [CT] Stat Exams 08/12/25 14:54 Completed - Procedures and Test Procedures and Tests throughout Hospitalization: Therapy Orders & Screens 08/12/25 22:57 PT Eval & Treat ( Order) ONCE Reason for Eval:: stroke Diagnosis: Aphasia, right sided focal deficits EKG REPEAT IN AM Comment: Diagnosis: Aphasia, right sided focal deficits OT Eval and Treat ( Order) ONCE Comment: Physician Instructions: Reason For Exam: Diagnosis: Aphasia, right sided focal deficits 08/12/25 22:58 ST Eval & Treat (MD Order) ROUTINE Comment: Physician Instructions: Reason For Exam: Evaluate: Yes Treat: Yes Reason for Eval: stroke Diagnosis: Aphasia, right sided focal deficits Discharge Exam General Appearance: no apparent distress, alert Neurologic Exam: alert, oriented x 3, cooperative, normal mood/affect, nml cerebellar function, sensation nml, No motor deficits Eye Exam: PERRL, EOMI, eyes nml inspection Ears, Nose, Throat Exam: normal ENT inspection, pharynx normal, moist mucous membranes Neck Exam: normal inspection, non-tender, supple, full range of motion Respiratory Exam: normal breath sounds, lungs clear, No respiratory distress Cardiovascular Exam: regular rate/rhythm, normal heart sounds Gastrointestinal/Abdomen Exam: soft, No tenderness, No mass Pelvic Exam: deferred Rectal Exam: deferred Back Exam: normal inspection, normal range of motion, No CVA tenderness, No vertebral tenderness Extremity Exam: normal inspection, normal range of motion Skin Exam: normal color, warm, dry Final Diagnosis/Problem List - Final Discharge Diagnosis/Problem (1) Stroke Current Visit: Yes Status: Acute Code(s): I63.9 - CEREBRAL INFARCTION, UNSPECIFIED (2) UTI (urinary tract infection) Current Visit: No Status: Acute Code(s): N39.0 - URINARY TRACT INFECTION, SITE NOT SPECIFIED (3) Thrombocytopenia Current Visit: Yes Status: Chronic (4) Weight loss, non-intentional Current Visit: Yes Status: Acute Code(s): R63.4 - ABNORMAL WEIGHT LOSS (5) Hypoglycemia Current Visit: Yes Status: Acute Code(s): E16.2 - HYPOGLYCEMIA, UNSPECIFIED (6) Slurred speech Current Visit: Yes Status: Resolved Code(s): R47.81 - SLURRED SPEECH (7) Diabetes Current Visit: No Status: Chronic Code(s): E11.9 - TYPE 2 DIABETES MELLITUS WITHOUT COMPLICATIONS (8) Hypertension Current Visit: No Status: Chronic Code(s): I10 - ESSENTIAL (PRIMARY) HYPERTENSION (9) Numbness Current Visit: Yes Status: Resolved Code(s): R20.0 - ANESTHESIA OF SKIN (10) CKD (chronic kidney disease) Current Visit: Yes Status: Chronic Code(s): N18.9 - CHRONIC KIDNEY DISEASE, UNSPECIFIED (11) Constipation Current Visit: Yes Status: Chronic Assessment & Plan: (1) Stroke Current Visit: Yes Status: Acute Assessment & Plan: - CT head: Impression: Nonacute senile brain with stable remote right caudate head lacunar infarct and new lacunar infarct left basal ganglia. - CTA head: Impression: Minimal calcifications left parasellar internal carotid artery without critical stenosis/obstruction. Remaining CTA head with contrast is normal. - CTA angio: Impression: 1. Minimally arteriosclerotic aortic arch and great vessels. 2. Minimal right and minimal/mild left carotid arteriosclerotic disease as detailed. Negative for critical stenosis/obstruction. 3. Bilaterally patent vertebral arteries with dominant left vertebral artery. 4. Incidental osteopenia and C4-C7 degenerative disc disease. - CBC, CMP reviewed - Neurology consulted, note reviewed and agree with plan of care - Lipitor 40mg daily - PT/ST/OT - HDL 39, lipid panel reviewed - Unable to have MRI d/t pacemaker- neuro reconsulted for recs - ASA 81 mg daily - Eliquis held - BP stable - Allow for permissive HTN - Echo- pending - EKG - Tele - TSH 1.891 08/14 - Repeat CT head: Impression: Grossly stable nonacute senile brain with lacunar infarcts right caudate head/left basal ganglia. - Eliquis restarted - Echo EF 55%- f/u OP with cardiology Code(s): I63.9 - CEREBRAL INFARCTION, UNSPECIFIED (2) UTI (urinary tract infection) Current Visit: No Status: Acute Qualifiers: Urinary tract infection type: acute cystitis Hematuria presence: with hematuria Qualified Code(s): N30.01 - Acute cystitis with hematuria Assessment & Plan: - Levaquin- pharmacy to dose for renal function - UC pending - UA reviewed 08/14 - UC gram negative- will continue to follow culture OP - D/C on PO levaquin - Old culture results reviewed- appears to have repeat UTI's with e-coli- PCP to consider urology consult Code(s): N39.0 - URINARY TRACT INFECTION, SITE NOT SPECIFIED (3) Thrombocytopenia Current Visit: Yes Status: Chronic Assessment & Plan: - Appears chronic per old labs reviewed - PLT 75 today- trend - Eliquis and maria del carmennox stopped 08/14 - PLT 74 - Pt refuses referral to specialist and wants to discuss with PCP OP (4) Weight loss, non-intentional Current Visit: Yes Status: Acute Assessment & Plan: - Reports 70 lb weight loss over 3-4 months - States she does not feel like eating - CT chest: Impression: Chronic findings including arteriosclerotic disease, osteopenia, and degenerative spondylosis. Remaining CT chest without contrast is negative. - CT Abd/pelvis: Impression: 1. Worsening mild diffuse colonic fecal stasis with new rectal fecal impaction. 2. Again chronic findings including gastric bariatric surgery, colonic diverticulosis, left renal cyst, arteriosclerotic disease, and chronic bony findings. 3. Remaining CT abdomen/pelvis with contrast exam is negative. - Occult stool- pending - Nutrition consult - Ensure high protein with meals- refuses - Started Ensure clear Code(s): R63.4 - ABNORMAL WEIGHT LOSS (5) Hypoglycemia Current Visit: Yes Status: Acute Assessment & Plan: - Q4 accuchecks - Pt reports not wanting to eat - Nutrition consult - Ensure high protein with meals - Hypoglycemia protocol Code(s): E16.2 - HYPOGLYCEMIA, UNSPECIFIED (6) Slurred speech Current Visit: Yes Status: Resolved Assessment & Plan: - resolved since admission Code(s): R47.81 - SLURRED SPEECH (7) Diabetes Current Visit: No Status: Chronic Qualifiers: Diabetes mellitus type: type 2 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 Diabetes mellitus complication status: with kidney complications Diabetes mellitus complication detail: with chronic kidney disease Assessment & Plan: - Type II - Hypoglycemia protocol - Accuchecks Q4 - Hold oral diabetic meds - Humalog S/S - A1C 5.21- Controlled Code(s): E11.9 - TYPE 2 DIABETES MELLITUS WITHOUT COMPLICATIONS (8) Hypertension Current Visit: No Status: Chronic Assessment & Plan: - BP stable - Allow for permissive HTN 08/14 - Stable Code(s): I10 - ESSENTIAL (PRIMARY) HYPERTENSION (9) Numbness Current Visit: Yes Status: Resolved Assessment & Plan: - resolved since admission Code(s): R20.0 - ANESTHESIA OF SKIN (10) CKD (chronic kidney disease) Current Visit: Yes Status: Chronic Assessment & Plan: - Creat 1.21 at baseline - Follows Dr. Bartholomew for nephrology 08/14 - Creat 1.38 - Encouraged oral fluid intake Code(s): N18.9 - CHRONIC KIDNEY DISEASE, UNSPECIFIED (11) Constipation Current Visit: Yes Status: Chronic Assessment & Plan: - Miralax daily 08/14 - Cont miralax - Soap suds enema Code(s): K59.00 - CONSTIPATION, UNSPECIFIED (12) Abnormal liver diagnostic imaging Current Visit: Yes Status: Acute Assessment & Plan: - As seen on CT and chronic: . Liver now demonstrates micronodular margins as seen with cirrhosis - Hepatitis panel - Pt refuses to be referred for further eval and wants to discuss with PCP. - Pt reports no prior knowledge of this finding. - May be causing thrombocytopenia D/C plan of care time: > 40 minutes Code(s): R93.2 - ABNORMAL FINDINGS ON DX IMAGING OF LIVER AND BILIARY TRACT - Discharge Discharge Date: 08/14/25 Disposition: Home, Self-Care Condition: Stable Prescriptions: New Polyethylene Glycol 3350 17 gm [Miralax Powder 17GM PACKET] 17 gm PO DAILY 30 Days #30 pkt Continue Omeprazole 20 MG [Prilosec 20 mg] 20 mg PO DAILY Carvedilol 12.5 mg [Coreg 12.5 mg] 25 mg PO BID Sitagliptin Phosphate 50 MG [Januvia 50 MG] 100 mg PO DAILY Rosuvastatin Calcium [Crestor] 20 mg PO DAILY Apixaban [Eliquis 5 mg Tablet] 5 mg PO BID Hydralazine HCl 25 mg PO BID Pregabalin [Lyrica 100Mg] 100 mg PO DAILY Pregabalin [Lyrica 100Mg] 200 mg PO HS [place]-3/Dha/Epa/Fish Oil [Fish Oil 1,000 mg Softgel] 1 each PO DAILY Glipizide 5 mg [Glucotrol 5 MG] 5 mg PO BID Cyanocobalamin 1000 Mcg/ml [Cyanocobalamin B-12 1000 MCG/ML] 1 ml PO UD Calcium Polycarbophil 625 mg [Fibercon 625 mg] 625 mg PO BID Brimonidine Tartrate/Pf [Lumify 0.025% Eye Drop] 1 each OP HS Additional Instructions: Take miralax only if needed. Follow up with: SADI GARAY DO [NON-STAFF PHY W/O PRIVILEGES, NEUROLOGY] - 09/07/25 11:00 am GUCCI VALENTIN NP [Primary Care Provider, [facility]] - 08/24/25 11:00 am
--- NOTE | 2025-08-14 13:03 | PCM.NOTE ---
Date and Time: 08/14/25 1301 Subjective Assessment: Anushka Mcclure is a 75 year old female with a history of hyperlipidemia, gastroesophageal reflux disease, CKD, DM, and anticoagulation (on Eliquis) who presented to the ED because of low blood sugar in the 50s at home with associated slurred speech and right sided body numbness. Anushka Mcclure experienced right-sided weakness, numbness, and difficulty speaking, which have since resolved. She has a history of atrial fibrillation and diabetes. She was unable to undergo MRI due to the presence of a pacemaker, so a CT scan was performed and found to be stable. This is the extent of the patients complaints at this time. Per H&P: is a 75 year old female with a history of hyperlipidemia, gastroesopha geal reflux disease, CKD, DM, and anticoagulation (on Eliquis) who presented to the ED because of low blood sugar in the 50s at home with associated slurred speech and right sided body numbness. Upon arrival to the emergency department, after the patient received an amp of D50, the patient was completely awake alert and oriented with a nonfocal neurologic exam. She denied chest pain and shortness of breath. She stated that she was aware what was happening and was surprised that her blood sugar was 50. Patient states that her primary prescribing providers have been adjusting different medications with a decrease in some of her diabetic medications as she has lost weight. CT scan showed a new stroke relative to prior imaging in 2017, but indeterminate if acute vs subacute vs chronic. In the ED, the patient was assessed by neurology with recommendations for MRI imaging, holding of Eliquis, and initiation of ASA. At the time of my assessment, the patient's granddaughter was at bedside. Objective Exam - Vital Signs Vital Signs: Vital Signs - 24 hr 08/13/25 08/13/25 08/14/25 16:00 20:00 00:00 Temperature 97.6 F 97.3 F 97.0 F Pulse Rate 86 72 69 Respiratory 16 16 16 Rate Blood Pressure 124/59 121/62 109/57 [Left Arm] O2 Sat by Pulse 96 96 Oximetry 08/14/25 08/14/25 08/14/25 04:00 07:23 11:49 Temperature 97.6 F 97.9 F 97.6 F Pulse Rate 63 65 93 H Respiratory 16 16 18 Rate Blood Pressure 117/59 120/67 121/65 [Left Arm] O2 Sat by Pulse 97 99 99 Oximetry - Physical Exam Tele-Neuro Physical Exam (Narrative): Gen: Well developed, well nourished. No acute distress. MS: Awake and oriented. Alert. Fund of knowledge and language at baseline. CV: Regular rate. No edema. general house worker: EOMI. +blink. Unable to visualize fundi. Sensation intact. Face is symmetric. Hearing intact. Trapezii strong. Tongue midline. Motor: Antigravity in all 4 extremities. Normal tone and bulk. Sens: Intact to light touch in all 4 extremities. MSR: Unable to assess through telemedicine, no clonus noted. Mvmt: No tremors noted. LOGAN/FTN intact. Gait: Deferred. - Physical Exam General: no acute distress, well developed, well nourished Objective Data - Labs Lab/Micro Results: Lab Results-Last 24 Hours 08/13/25 08/13/25 08/14/25 Range/Units 16:05 21:16 04:34 WBC (3.98-10.04) x10^3/uL RBC (3.93-5.22) x10^6/uL Hgb (11.2-15.7) g/dL Hct (34.1-44.9) % MCV (79.4-94.8) fL MCH (25.6-32.2) pg MCHC (32.2-35.5) g/dL RDW (11.7-14.4) % Plt Count (182-369) x10^3/uL MPV (9.4-12.3) fL Sodium (135-145) mmol/L Potassium (3.5-5.1) mmol/L Chloride (98-107) mmol/L Carbon Dioxide (22-30) mmol/L Anion Gap (5-15) MEQ/L BUN (7-17) mg/dL Creatinine (0.52-1.04) mg/dL Estimated GFR ML/MIN Glucose (74-106) mg/dL POC Glucometer 97 136 H 110 H (74 to 106) mg/dL Calcium (8.4-10.2) mg/dL Total Bilirubin (0.2-1.3) mg/dL AST (14-36) U/L ALT (0-35) U/L Alkaline Phosphatase (38-126) U/L Serum Total Protein (6.3-8.2) g/dL Albumin (3.5-5.0) g/dL Slides for Path Review 08/14/25 08/14/25 08/14/25 Range/Units 04:35 04:35 10:04 WBC 4.1 (3.98-10.04) x10^3/uL RBC 4.21 (3.93-5.22) x10^6/uL Hgb 12.8 (11.2-15.7) g/dL Hct 39.2 (34.1-44.9) % MCV 93.1 (79.4-94.8) fL MCH 30.4 (25.6-32.2) pg MCHC 32.7 (32.2-35.5) g/dL RDW 15.0 H (11.7-14.4) % Plt Count 74 L (182-369) x10^3/uL MPV 14.2 H (9.4-12.3) fL Sodium 140 (135-145) mmol/L Potassium 3.5 (3.5-5.1) mmol/L Chloride 106 (98-107) mmol/L Carbon Dioxide 26 (22-30) mmol/L Anion Gap 12.0 (5-15) MEQ/L BUN 21 H (7-17) mg/dL Creatinine 1.38 H (0.52-1.04) mg/dL Estimated GFR 40.2 ML/MIN Glucose 109 H (74-106) mg/dL POC Glucometer 166 H (74 to 106) mg/dL Calcium 9.4 (8.4-10.2) mg/dL Total Bilirubin 0.70 (0.2-1.3) mg/dL AST 35 (14-36) U/L ALT 14 (0-35) U/L Alkaline Phosphatase 53 (38-126) U/L Serum Total Protein 5.8 L (6.3-8.2) g/dL Albumin 3.4 L (3.5-5.0) g/dL Slides for Path Review YES Microbiology 08/12/25 18:46 Urine Culture - Preliminary Catherized GRAM NEGATIVE ID AND SENSITIVITY PENDING Accuchecks Date 08/14/25 Date 08/14/25 Date 08/13/25 Date 08/13/25 Time 04:20 Time 21:20 Time 16:41 - Other Procedures & Test Other Procedures & Test: CTH 08/12/25: Nonacute senile brain with stable remote right caudate head lacunar infarct and new lacunar infarct left basal ganglia. CTA: No critical or severe stenosis CTH 08/14/25: Grossly stable nonacute senile brain with lacunar infarcts right caudate head/left basal ganglia Labs reviewed, see EMR Imaging reviewed, see EMR/PACS Please refer to the radiologists report for the definitive interpretation of images. - Radiology Orders Radiology Orders: Radiology Procedures Category Date Time Status ABDOMEN AND PELVIS W/0 CONTRAS [CT] Routine Exams 08/13/25 20:24 Completed CHEST WITHOUT CONTRAST [CT] Routine Exams 08/13/25 20:[address] ANGIOGRAPHY NECK [CT] Stat Exams 08/12/25 19:16 Completed CTA HEAD W AND/OR WO CONTRAST [CT] Stat Exams 08/12/25 19:16 Completed ECHO W/2D AND DOPPLER [US] Routine Exams 08/13/25 08:00 Taken HEAD WITHOUT CONTRAST [CT] Routine Exams 08/14/25 09:55 Completed HEAD WITHOUT CONTRAST [CT] Stat Exams 08/12/25 14:54 Completed Assessment & Plan - Encounter Encounter: "The entirety of this encounter was performed via Telemedicine using audio and visual " ASSESSMENT/PLAN: Anushka Mcclure is a 75 year old female with a history of hyperlipidemia, gastroesophageal reflux disease, CKD, DM, and anticoagulation (on Eliquis) who presented to the ED because of low blood sugar in the 50s at home with associated slurred speech and right sided body numbness. Patient is now back to baseline. The symptoms at presentation were more likely related to hypoglycemia rather than a small lacunar stroke. She reports no residual weakness or numbness from prior stroke, except for neuropathy symptoms mainly in her feet and legs consistent with length-dependent diabetic neuropathy. Both lacunar strokes appear to be incidental findings. She uses a Dexcom glucose monitor for regular home blood sugar monitoring. The "new" left basal ganglia infarct is new when compared to a CT head from 2017. The lesion may have occurred anytime since then. No symptoms reported. Lacunar infarcts are typically associated with small vessel disease most frequently driven by hypertension and/or diabetes. Due to the size of the infarct and its likely chronicity, ok to restart Eliquis and stop aspirin. - General Recommendations - Telemetry - q4h neuro checks - Medications - Restart Eliquis 5mg twice daily - Hold ASA - Continue atorvastatin - Please avoid benzodiazepines/sedatives if agitated to not obscure neurologic exam - Imaging: - Recommend MRI brain wo contrast outpatient - TTE w/ bubble (pending read) - Labs: - HgbA1c - Lipid panel - TSH with Reflex to T4 - PT/OT/BEVEL POLISHER - Discharge Planning - Patient will need follow up with neurology - ok for discharge from neurologic perspective Lamonte Barajas MD Thank you for allowing us to participate in this patients care. Please call [facility] with questions, concerns, or change in patients neurological status. This consult was performed via secure telemedicine audio/visual platform, patient consent obtained.
[2025-08-14] MEDS: Januvia 50 MG PO SCH (14:08)
[2025-08-14] MEDS: ELIQUIS 2.5 MG TABLET PO SCH (14:10)
[2025-08-14] MEDS ORDERED: Glucotrol 5 MG PO SCH (16:30)
[2025-08-14] MEDS ORDERED: NON-FORMULARY ITEM (Apixaban*** [Eliquis 5 Mg Tablet***] 5 MG Tablet) PO SCH (22:00)
== END 2025-08-14 15:35 | disposition home or self-care (01) ==
LOC: ED 14:11 → MED SURG 22:22
PROVIDERS: ADMIT Internal Medicine; ATTEND Internal Medicine
DX: I63.9 Cerebral infarction, unspecified (principal); N39.0 Urinary tract infection, site not specified; B96.20 Unspecified Escherichia coli [E. coli] as the cause of diseases classified elsewhere; D69.6 Thrombocytopenia, unspecified; R63.4 Abnormal weight loss; E11.649 Type 2 diabetes mellitus with hypoglycemia without coma; R47.81 Slurred speech; E11.22 Type 2 diabetes mellitus with diabetic chronic kidney disease; I12.9 Hypertensive chronic kidney disease with stage 1 through stage 4 chronic kidney disease, or unspecified chronic kidney disease; N18.9 Chronic kidney disease, unspecified; R20.0 Anesthesia of skin; K59.00 Constipation, unspecified; R93.2 Abnormal findings on diagnostic imaging of liver and biliary tract; Z79.899 Other long term (current) drug therapy; Z79.01 Long term (current) use of anticoagulants; E78.5 Hyperlipidemia, unspecified; K21.9 Gastro-esophageal reflux disease without esophagitis; F17.200 Nicotine dependence, unspecified, uncomplicated